=== PATIENT | female | born 1990 | race Caucasian/White ===

== ENCOUNTER → 2021-12-13 09:54 | Outpatient (CLI) | payer OTHER, SELFPAY ==
[2021-12-13 10:01] LABS: Microscopic, Urine URINE MICROSCOPIC (MICROSCOPIC)
--- NOTE | 2021-12-13 10:16 | XR_ITS ---
FINAL REPORT CLINICAL HISTORY: history of bacteremia FINDINGS: Two views of the chest were obtained. The heart size and pulmonary vascularity are within normal limits. The mediastinum is normal. There are multiple bilateral pulmonary nodules, some of which are cavitary most worrisome for septic emboli. There is no pneumothorax. The bony thorax is intact. IMPRESSION: Multiple bilateral pulmonary nodules worrisome for septic emboli. Could be further evaluated with chest CT. Reviewed, Interpreted and Dictated by Beltran White III, MD Transcribed by Joyce Mei Authenticated and . [facility]
[2021-12-13 10:30] LABS: Basophils # 0.1 K/mm3 (0-0.2); Basophils % 0.6 % (0.1-2.0); Eosinophils # 0.2 K/mm3 (0.0-0.4); Eosinophils % 0.9 % (0.1-12.0); Hematocrit 35.3 % (37.0-47.0); Hemoglobin 11.6 g/dL (12.2-16.2); Lymphocytes # 1.3 K/mm3 (0.7-4.5); Lymphocytes % 7.6 % (10-50); Mean Corpuscular HGB Conc 32.8 g/dL (31.8-35.4); Mean Corpuscular Hemoglobin 29.4 pg (27.0-31.2); Mean Corpuscular Volume 89.7 fl (81-99); Mean Platelet Volume 9.9 fl (7.4-10.4); Monocytes # 0.7 K/mm3 (0.1-1.0); Neutrophils # 14.7 K/mm3 (1.8-7.8); Platelet Count 221 K/mm3 (142-424); Red Blood Count 3.93 M/mm3 (4.20-5.40); Red Cell Distribution Width 14.7 % (11.5-17.5); White Blood Count 16.9 K/mm3 (4.8-10.8)
[2021-12-13 10:34] LABS: MANUAL DIFFERENTIAL MANUAL DIFFERENTIAL (MANUAL DIFF)
[2021-12-13 10:37] LABS: Appearance,Urine CLEAR (Clear); Bilirubin,Urine Negative (Negative); Blood, Urine TRACE-I (Negative); Color,Urine YELLOW (Yellow); Glucose,Urine (UA) Negative (Negative); Ketones,Urine Negative (Negative); Leukocyte Esterase,Urine Negative (Negative); Nitrate,Urine Negative (Negative); PH,Urine 7.5 (5.0-8.5); Protein,Urine TRACE (Negative)
[2021-12-13 10:48] LABS: Eosinophils % 1 % (0-3); Lymphocytes % 9 % (10-50); Monocytes % 1 % (2-9); Neutrophils % 89 % (42-76); Total Cells Counted 100
[2021-12-13 10:49] LABS: Platelet Estimate Normal; RBC Morphology Normal
[2021-12-13 10:53] LABS: Bacteria,Urine Trace /lpf; RBC,Urine Occasional #/hpf (0-3); Squamous Epithelial Cell,Urine Occasional #/hpf (0-5); WBC,Urine Occasional #/hpf (0-3)
[2021-12-13 11:15] LABS: Erythrocyte Sedimentation Rate 88 mm/hr (0-20)
[2021-12-13 11:18] LABS: Alanine Aminotransferase 313 U/L (12-78); Albumin Level 2.9 g/dl (3.5-5.0); Albumin/Globulin Ratio 0.9 (1.1-1.8); Alkaline Phosphatase 354 U/L (38-126); Anion Gap 10.9 mEq/L (5-15); Aspartate Amino Transferase 586 U/L (14-36); Bilirubin,Total 0.7 mg/dl (0.2-1.3); Blood Urea Nitrogen 30 mg/dl (7-17); Calcium 8.8 mg/dl (8.4-10.2); Carbon Dioxide 27 mmol/L (22.0-30.0); Chloride 102 mmol/L (98-107); Estimated Glomerular Filt Rate 97 ml/min (>60); GFR (African American) 117 ML/MIN (>60); Globulin 3.4 g/dL (1.3-3.2); Glucose 85 mg/dl (74-100); Potassium 4.9 mmoL/L (3.5-5.1); Sodium 135 mmol/L (136-145); Total Protein,Serum 6.3 g/dl (6.3-8.2)
[2021-12-13 13:15] LABS: Procalcitonin 1.57 ng/mL (0.0-2.0)
[2021-12-14 20:09] LABS: Neisseria gonorrhoeae, NAA Negative (Negative)
== END ==
PROVIDERS: PCP Family Medicine; Visit Provider Family Medicine
DX: Z87.898 Personal history of other specified conditions (principal); R78.81 Bacteremia
CPT/HCPCS: 36415; 71046; 80053; 81001; 84145; 85007; 85025; 85651; 86140; 87491; 87591

== ENCOUNTER 2021-12-13 12:34 | Inpatient (IN) | payer OTHER, SELFPAY ==
--- NOTE | 2021-12-13 12:37 | CT_ITS ---
FINAL REPORT CLINICAL HISTORY: septic emboli, SOA with deep breaths, cough FINDINGS: Thin section axial CT images of the chest were obtained with contrast. 3D reformatted images were also obtained. This study was performed with techniques to keep radiation doses as low as reasonably achievable (ALARA). Individualized dose reduction techniques using automated exposure control or adjustment of mA and/or kV according to the patient's size were employed. There is no evidence of pulmonary embolism. There is no evidence of thoracic aortic aneurysm or dissection. There is no evidence of mediastinal or hilar mass or adenopathy. There are numerous nodules throughout both lungs, many of which are cavitary. One of the larger cavitary nodules measures 18 mm in the lateral right upper lobe. There is a 20 mm cavitary nodule in the posterolateral left lower lobe. Limited images of the upper abdomen demonstrate changes from cholecystectomy. IMPRESSION: No evidence of pulmonary embolism or aortic dissection. Findings most worrisome for multiple septic emboli. Reviewed, Interpreted and Dictated by Beltran White III, MD Transcribed by Armani Medina Authenticated and [facility]
[2021-12-13 12:39] VITALS: BP 105/68; PULSE 106; RESP 16; TEMP 37.2; O2SAT 100; BMI 23.5
--- NOTE | 2021-12-13 12:41 | PC.NURSE ---
GUILHERME FRANCIS at
--- NOTE | 2021-12-13 12:58 | ECG_ITS ---
APPROVED REPORT Exam: Resting ECG HR:104 bpm ECG Measurements Heart Rate 104 AXES MD 130 P 58 QRSd 90 QRS 85 QT 319 T 16 QTc 379 Conclusion SINUS TACHYCARDIA ABNORMAL RHYTHM ECG UNCONFIRMED REPORT Electronically signed by : Serge Cruz MD 12/14/2021 14:40:44
[2021-12-13 13:30] VITALS: BP 98/66; PULSE 109; O2SAT 99
[2021-12-13 13:32] LABS: Lactic Acid 1.1 mmol/L (0.7-2.1)
[2021-12-13 13:33] LABS: Alanine Aminotransferase 308 U/L (12-78); Albumin/Globulin Ratio 0.8 (1.1-1.8); Alkaline Phosphatase 341 U/L (38-126); Aspartate Amino Transferase 534 U/L (14-36); Bilirubin,Total 1.1 mg/dl (0.2-1.3); Blood Urea Nitrogen 29 mg/dl (7-17); Calcium 8.6 mg/dl (8.4-10.2); Carbon Dioxide 27 mmol/L (22.0-30.0); Chloride 99 mmol/L (98-107); Creatinine Clearance Estimated 145 mL/min (50-200); Estimated Glomerular Filt Rate 116 ml/min (>60); GFR (African American) 140 ML/MIN (>60); Globulin 3.9 g/dL (1.3-3.2); Glucose 98 mg/dl (74-100); Sodium 134 mmol/L (136-145); Total Protein,Serum 6.9 g/dl (6.3-8.2)
[2021-12-13 13:38] LABS: C-Reactive Protein 287.1 mg/L (0-4)
[2021-12-13 13:46] LABS: Erythrocyte Sedimentation Rate 105 mm/hr (0-20)
[2021-12-13 13:47] LABS: Troponin I < 0.01 ng/ml (0.00-0.034)
[2021-12-13 14:00] VITALS: BP 110/72; PULSE 106; RESP 18; O2SAT 99
[2021-12-13 14:03] LABS: Basophils # 0.1 K/mm3 (0-0.2); Basophils % 0.6 % (0.1-2.0); Eosinophils # 0.2 K/mm3 (0.0-0.4); Eosinophils % 0.9 % (0.1-12.0); Hematocrit 34.6 % (37.0-47.0); Hemoglobin 11.4 g/dL (12.2-16.2); Lymphocytes # 1.2 K/mm3 (0.7-4.5); Lymphocytes % 6.8 % (10-50); Mean Corpuscular Hemoglobin 29.8 pg (27.0-31.2); Mean Corpuscular Volume 90.3 fl (81-99); Monocytes # 0.6 K/mm3 (0.1-1.0); Monocytes % 3.3 % (1.7-9.3); Neutrophils # 14.9 K/mm3 (1.8-7.8); Neutrophils % 88.3 % (37.0-80.0); Platelet Count 202 K/mm3 (142-424); Red Blood Count 3.83 M/mm3 (4.20-5.40); Red Cell Distribution Width 14.7 % (11.5-17.5); White Blood Count 16.9 K/mm3 (4.8-10.8)
--- NOTE | 2021-12-13 14:10 | INFXCTL.NOTE ---
Paged Dr. Casiano; awaiting a call back
[2021-12-13 14:11] LABS: HCG Qualitative, Serum Negative (Negative)
--- NOTE | 2021-12-13 14:22 | PC.NURSE ---
okayed for pt to eat and drink, meal tray ordered for pt and family
--- NOTE | 2021-12-13 14:23 | PC.NURSE ---
Spoke to Miriam in Care Management regarding patient admission
--- NOTE | 2021-12-13 14:27 | P.CONPHA_ITS ---
- Pharmacy Consult Date: 12/13/21 Time: 14:27 Referring provider: DR. MORE Reason for Consult:: VANCOMYCIN DOSING Allergies and ADEs:: Allergies Allergy/AdvReac Type Severity Reaction Status Date / Time No Known Allergies Allergy Verified 12/13/21 10:47 Home Medications:: Home Medications Medication Instructions Recorded Confirmed Type amoxicillin 500 mg-potassium 1 tab PO DAILY tab 12/13/21 12/13/21 History clavulanate 125 mg tablet linezolid 600 mg tablet 600 mg PO Q12H 21 Days #42 tab 12/13/21 12/13/21 Rx Height: 1.7 m Weight: 68.039 kg Laboratory Results:: Laboratory Results - last 24 hr 12/13/21 12:37: WBC 16.9 H, RBC 3.83 L, Hgb 11.4 L, Hct 34.6 L, MCV 90.3, MCH 29.8, MCHC 33.0, RDW 14.7, Plt Count 202, MPV 11.0 H, Neut % (Auto) 88.3 H, Lymph % (Auto) 6.8 L, [place] % (Auto) 3.3, Eos % (Auto) 0.9, Baso % (Auto) 0.6, Neut # (Auto) 14.9 H, Lymph # (Auto) 1.2, [place] # (Auto) 0.6, Eos # (Auto) 0.2, Baso # (Auto) 0.1 12/13/21 13:10: Sodium 134 L, Potassium 5.0, Chloride 99, Carbon Dioxide 27, Anion Gap 13.0, BUN 29 H, Creatinine 0.60, Estimated Creat Clear 145, Estimated GFR 116, Est GFR ( Amer) 140, Glucose 98, Calcium 8.6, Total Bilirubin 1.1, AST 534 H*, ALT 308 H*, Alkaline Phosphatase 341 H, Troponin I < 0.01, C- Reactive Protein 287.1 H, Total Protein 6.9, Albumin 3.0 L, Globulin 3.9 H, Alb umin/Globulin Ratio 0.8 L 12/13/21 13:10: Lactate 1.1 12/13/21 13:10: ESR 105 H 12/13/21 13:10: Serum HCG, Qual Negative Medical History: Reports:: Anxiety, Asthma, Depression Assessment and Plan - Assessment and plan all Dx Assessment and Plan for all problems:: Pharmacokinetic dosing service Objective: Patient: Floor: Age: 31 yo Serum creatinine: 0.60 mg/dL Height: 66.9 Inches Weight (kg): 68 Assessment: IBW (kg): 61.37 Dosing wt(kg): 68 Estimated Creatinine clearance (ml/min): 130 Clearance limited to 130 ml/min to reduce risk of overdosing. CRCL method: Cockcroft and Gault using ibw(default). Drug selected: Vancomycin Loading dose (mg): Vd (liters): 51.0 (factor used: 0.75 L/kg) Daron (hr-1): 0.112 Half life (hrs): 6.19 CLvanco=?? 5.712 L/hr Recommended dose: 1500 mg Interval: 12 hrs Infusion time (hrs): 2.0 Predicted peak (mcg/mL): 35.6 Predicted trough (mcg/mL): 11.62 Total body weight is being used for vancomycin dosing. Recommendations: Give Vancomycin 1500 mg q 12 hrs with an expected Cpeak of 35.6 mcg/ml and an expected Ctrough of 11.62 mcg/ml AUC 0-24 /SUMMER Data: SUMMER 0.5 mcg/mL:?? AUC/SUMMER:? 1050.4 SUMMER 1.0 mcg/mL:?? AUC/SUMMER:? 525.2 --------- SUMMER 1.5 mcg/mL:?? AUC/SUMMER:? 350.1 SUMMER 2.0 mcg/mL:?? AUC/SUMMER:? 262.6 Thank you for the consult, will continue to follow. -RAMSES CORREA PHARMD
[2021-12-13 14:47] LABS: Coronavirus 19, PCR Not Detected (NotDetected); Influenza A, PCR Not Detected (NotDetected); Influenza B, PCR Not Detected (NotDetected)
--- NOTE | 2021-12-13 15:05 | HMH.EDGENADL ---
ED Disposition Clinical Impression: Septic embolism Disposition: Admitted As Inpatient Condition on Discharge: Critical - Critical Care Critical Care Time: Yes Attestation: On 12/13/21, the high probability of a clinically significant, sudden or life threatening deterioration of the following system(s) required my full and direct attention, intervention and personal management. The time I documented below is in addition to time spent performing reported procedures but includes the following listed in this critical care notation. Total Critical Care Time: 30 Vital system(s) involved:: Shock (Septic) My critical care processes included: Assessment & monitoring of V/S, Initial and Re-exams, Data Review/Interpretation, Coordinating Care, Medication Orders and management Medical Decision Making - Medical Records Medical records reviewed: Yes: I reviewed the patient's medical records. - Justin Inquiry Pt receiving controlled substance: No Vital Signs: 12/13/21 12:39 12/13/21 13:30 12/13/21 14:00 Temperature 98.9 F Temperature Source Oral Pulse Rate 109 H 106 H Pulse Rate [Right Radial] 106 H Respiratory Rate 16 18 Blood Pressure 98/66 L 110/72 Blood Pressure [Right Arm] 105/68 L Blood Pressure Mean 72 79 Blood Pressure Mean [Right Arm] 80 Blood Pressure Source [Right Arm] Automatic Cuff Blood Pressure Position [Right Arm] Sitting 02 Sat by Pulse Oximetry 100 99 99 Oxygen Delivery Method Room Air Room Air 12/13/21 18:00 Temperature Temperature Source Pulse Rate Pulse Rate [Right Radial] Respiratory Rate Blood Pressure Blood Pressure [Right Arm] Blood Pressure Mean Blood Pressure Mean [Right Arm] Blood Pressure Source [Right Arm] Blood Pressure Position [Right Arm] 02 Sat by Pulse Oximetry Oxygen Delivery Method Room Air - Lab Data Lab results reviewed: Yes: I reviewed the patient's lab results. Lab Results 12/13/21 12:37: WBC 16.9 H, RBC 3.83 L, Hgb 11.4 L, Hct 34.6 L, MCV 90.3, MCH 29.8, MCHC 33.0, RDW 14.7, Plt Count 202, MPV 11.0 H, Neut % (Auto) 88.3 H, Lymph % (Auto) 6.8 L, [place] % (Auto) 3.3, Eos % (Auto) 0.9, Baso % (Auto) 0.6, Neut # (Auto) 14.9 H, Lymph # (Auto) 1.2, [place] # (Auto) 0.6, Eos # (Auto) 0.2, Baso # (Auto) 0.1 12/13/21 13:10: Sodium 134 L, Potassium 5.0, Chloride 99, Carbon Dioxide 27, Anion Gap 13.0, BUN 29 H, Creatinine 0.60, Estimated Creat Clear 145, Estimated GFR 116, Est GFR ( Amer) 140, Glucose 98, Calcium 8.6, Total Bilirubin 1.1, AST 534 H*, ALT 308 H*, Alkaline Phosphatase 341 H, Troponin I < 0.01, C-Reactive Protein 287.1 H, Total Protein 6.9, Albumin 3.0 L, Globulin 3.9 H, Albumin/Globulin Ratio 0.8 L 12/13/21 13:10: Lactate 1.1 12/13/21 13:10: ESR 105 H 12/13/21 13:10: Serum HCG, Qual Negative Result diagrams: 12/13/21 18:50 12/13/21 18:50 Orders (Tests/Meds): ED MEDICATIONS Generic Name Dose Route Start Last Admin Trade Name Freq PRN Reason Stop Dose Admin Docusate Sodium 100 mg 12/14/21 09:00 Docusate Sodium 100 Mg Capsule PO 01/13/22 08:59 DAILY CATIA Vancomycin/PEG/NADA/Lysine/Water 1.5 gm in 300 mls @ 150 mls/hr 12/14/21 03:00 Vancomycin 1.5gm/300ml (Peg) Premix IV 12/27/21 14:59 Q12H CATIA Ibuprofen 400 mg 12/13/21 18:00 Ibuprofen 400 Mg Tablet PO 01/12/22 17:59 Q6HP PRN Mild Pain Ibuprofen 600 mg 12/13/21 18:11 Ibuprofen 600 Mg Tablet PO 01/12/22 18:10 Q8HP PRN Fever or Mild Pain Ketorolac Tromethamine 30 mg 12/13/21 18:00 Ketorolac 30mg/Ml Vial IV 12/18/21 17:59 Q6HP PRN Moderate Pain Ketorolac Tromethamine 10 mg 12/13/21 20:00 Ketorolac 10mg Tablet PO 12/18/21 19:59 Q6H [facility] Miscellaneous 1 each 12/13/21 18:00 12/13/21 19:05 Vancomycin Consult Request * 01/12/22 14:29 Not Given CONSULT PHARMACY [facility] Naproxen 250 mg 12/13/21 18:10 Naproxen 500mg Tablet PO 01/12/22 18:09 BIDP PRN Severe Pain Pantoprazole
--- NOTE | 2021-12-13 15:48 | PC.NURSE ---
Lab at BS to draw 2nd troponin
[2021-12-13 16:32] LABS: Troponin I < 0.01 ng/ml (0.00-0.034)
--- NOTE | 2021-12-13 17:09 | PC.NURSE ---
Rounded on pt at this time. PT and visitor sleeping. Pt felt warm to touch when I was adjusting her IV, woke pt up and checked her temp it was 99.0. Pt had no new needs at this time. Resting comfortably
--- NOTE | 2021-12-13 17:46 | PC.NURSE ---
pt ambulatory to restroom without complications
--- NOTE | 2021-12-13 17:57 | PC.NURSE ---
Called report to Karla Mckinney RN
[2021-12-13 18:05] VITALS: BP 95/72; PULSE 102; RESP 14; TEMP 37.2; O2SAT 97
--- NOTE | 2021-12-13 18:11 | PC.NURSE ---
Pt arrived to the floor at this time
[2021-12-13 18:16] VITALS: BP 97/61; PULSE 104; RESP 14; TEMP 37.1; O2SAT 97; BMI 23.7
[2021-12-13 19:26] LABS: Basophils # 0.1 K/mm3 (0-0.2); Basophils % 0.6 % (0.1-2.0); Eosinophils # 0.1 K/mm3 (0.0-0.4); Eosinophils % 0.8 % (0.1-12.0); Hematocrit 32.1 % (37.0-47.0); Hemoglobin 10.5 g/dL (12.2-16.2); Lymphocytes # 1.1 K/mm3 (0.7-4.5); Lymphocytes % 7.7 % (10-50); Mean Corpuscular HGB Conc 32.8 g/dL (31.8-35.4); Mean Corpuscular Hemoglobin 29.5 pg (27.0-31.2); Mean Corpuscular Volume 89.9 fl (81-99); Mean Platelet Volume 9.9 fl (7.4-10.4); Monocytes # 0.5 K/mm3 (0.1-1.0); Monocytes % 3.1 % (1.7-9.3); Neutrophils % 87.8 % (37.0-80.0); Platelet Count 223 K/mm3 (142-424); Red Blood Count 3.56 M/mm3 (4.20-5.40); Red Cell Distribution Width 14.8 % (11.5-17.5); White Blood Count 14.7 K/mm3 (4.8-10.8)
[2021-12-13 19:29] LABS: MANUAL DIFFERENTIAL MANUAL DIFFERENTIAL (MANUAL DIFF)
[2021-12-13 19:34] LABS: Chloride 100 mmol/L (98-107); Potassium 3.9 mmoL/L (3.5-5.1); Sodium 134 mmol/L (136-145)
[2021-12-13 19:37] LABS: Blood Urea Nitrogen 24 mg/dl (7-17); Creatinine Clearance Estimated 110 mL/min (50-200); Estimated Glomerular Filt Rate 83 ml/min (>60); GFR (African American) 101 ML/MIN (>60); Lactic Acid 1.5 mmol/L (0.7-2.1)
[2021-12-13 19:38] LABS: Anion Gap 10.9 mEq/L (5-15); Calcium 8.4 mg/dl (8.4-10.2); Carbon Dioxide 27 mmol/L (22.0-30.0); Glucose 141 mg/dl (74-100)
[2021-12-13 20:00] VITALS: BP 103/52; PULSE 106; RESP 17; TEMP 36.8; O2SAT 96
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
--- NOTE | 2021-12-13 20:52 | HMH.ITSTN ---
RN spoke to , wants to hold off on CT scans until 12/14/21.
[2021-12-13 21:14] LABS: Eosinophils % 2 % (0-3); Lymphocytes % 13 % (10-50); Monocytes % 4 % (2-9); Neutrophils % 81 % (42-76); Nucleated Red Blood Cells 5; Total Cells Counted 100
[2021-12-13 21:15] LABS: Platelet Estimate Normal
[2021-12-14 04:00] VITALS: BP 96/54; PULSE 118; RESP 18; TEMP 37.4; O2SAT 92
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
--- NOTE | 2021-12-14 05:19 | PC.NURSE ---
notified of positive blood cultures.
[2021-12-14 06:00] VITALS: BMI 21.4
[2021-12-14 07:35] LABS: Basophils # 0.1 K/mm3 (0-0.2); Basophils % 0.4 % (0.1-2.0); Eosinophils # 0.1 K/mm3 (0.0-0.4); Eosinophils % 0.7 % (0.1-12.0); Hematocrit 29.9 % (37.0-47.0); Hemoglobin 9.9 g/dL (12.2-16.2); Lymphocytes # 1.5 K/mm3 (0.7-4.5); Lymphocytes % 9.8 % (10-50); Mean Corpuscular HGB Conc 33.2 g/dL (31.8-35.4); Mean Corpuscular Hemoglobin 29.9 pg (27.0-31.2); Mean Platelet Volume 9.7 fl (7.4-10.4); Monocytes # 0.8 K/mm3 (0.1-1.0); Monocytes % 5.1 % (1.7-9.3); Platelet Count 205 K/mm3 (142-424); Red Blood Count 3.32 M/mm3 (4.20-5.40); Red Cell Distribution Width 14.9 % (11.5-17.5); White Blood Count 15.5 K/mm3 (4.8-10.8)
[2021-12-14 07:38] LABS: MANUAL DIFFERENTIAL MANUAL DIFFERENTIAL (MANUAL DIFF)
[2021-12-14 07:47] LABS: Chloride 105 mmol/L (98-107); Potassium 3.5 mmoL/L (3.5-5.1); Sodium 135 mmol/L (136-145)
[2021-12-14 07:50] LABS: Alanine Aminotransferase 173 U/L (12-78); Albumin Level 2.4 g/dl (3.5-5.0); Albumin/Globulin Ratio 0.7 (1.1-1.8); Alkaline Phosphatase 351 U/L (38-126); Anion Gap 10.5 mEq/L (5-15); Aspartate Amino Transferase 127 U/L (14-36); Bilirubin,Total 0.6 mg/dl (0.2-1.3); Blood Urea Nitrogen 20 mg/dl (7-17); Calcium 7.9 mg/dl (8.4-10.2); Carbon Dioxide 23 mmol/L (22.0-30.0); Creatinine Clearance Estimated 99 mL/min (50-200); Estimated Glomerular Filt Rate 83 ml/min (>60); GFR (African American) 101 ML/MIN (>60); Globulin 3.3 g/dL (1.3-3.2); Glucose 146 mg/dl (74-100); Total Protein,Serum 5.7 g/dl (6.3-8.2)
[2021-12-14 08:00] VITALS: BP 97/58; PULSE 88; RESP 16; TEMP 36.7; O2SAT 94
--- NOTE | 2021-12-14 08:00 | CT_ITS ---
FINAL REPORT CLINICAL HISTORY: mrsa bacteremia with neck pain FINDINGS: Computed tomography images were obtained through the cervical spine before and after IV contrast administration. This study was performed with techniques to keep radiation doses as low as reasonably achievable (ALARA). Individualized dose reduction techniques using automated exposure control or adjustment of mA and/or kV according to the patient's size were employed. There is no acute fracture. There is mild kyphosis centered at C4-C5. There is mild degenerative change. There is no significant canal stenosis. There is no abnormal contrast enhancement. IMPRESSION: Degenerative change with no definite acute abnormality, if symptoms persist MRI may be helpful. Reviewed, Interpreted and Dictated by Beltran White III, MD Transcribed by Neelam Rai Authenticated and [facility]
--- NOTE | 2021-12-14 08:00 | CT_ITS ---
FINAL REPORT CLINICAL HISTORY: .back pain, mrsa, FINDINGS: Computed tomography images were obtained through the thoracic spine before and after IV contrast administration. This study was performed with techniques to keep radiation doses as low as reasonably achievable (ALARA). Individualized dose reduction techniques using automated exposure control or adjustment of mA and/or kV according to the patient's size were employed. There is no acute fracture. There are multilevel degenerative changes. There are osteophytes at multiple levels. There is mild vacuum disc phenomenon at multiple levels. There schmorl's nodes at multiple levels. There is no convincing discitis/osteomyelitis. There is no canal stenosis. There is a small left pleural effusion. There are numerous pulmonary nodules, some are cavitary which is consistent with septic emboli. IMPRESSION: Degenerative change with no definite acute abnormality. If symptoms persist, MRI may be helpful. Reviewed, Interpreted and Dictated by Beltran White III, MD Transcribed by Neelam Rai Authenticated and . [facility]
--- NOTE | 2021-12-14 08:00 | CT_ITS ---
FINAL REPORT CLINICAL HISTORY: mrsa bacteremia with back pain FINDINGS: Computed tomography images were obtained through the lumbar spine before and after IV contrast administration. This study was performed with techniques to keep radiation doses as low as reasonably achievable (ALARA). Individualized dose reduction techniques using automated exposure control or adjustment of mA and/or kV according to the patient's size were employed. There is no acute fracture. There is no malalignment. The joint spaces are preserved. There is no abnormal contrast enhancement. There is no definite bony erosion. IMPRESSION: No acute abnormality, no definite bony erosion. If symptoms persist, MRI may be helpful. Reviewed, Interpreted and Dictated by Beltran White III, MD Transcribed by Neelam Rai Authenticated and [facility]
--- NOTE | 2021-12-14 08:51 | CA_ITS ---
APPROVED REPORT EXAM: Comprehensive 2D, Doppler, and color-flow Echocardiogram Drafting Detailer: Mia Foster CRT Ht: 5 ft 7 in Wt: 151lbs BSA: 1.79 BP: 97/61 mmHg Indications: Fever, IVU, MRSA, Hep c, Endocarditis on echo last week at [facility],SOB,CP, smoker 2D Dimensions LVOT 2.04 cm (M/F) 1.5-2.5 LA Volume 22.70 mL LA Volume Index 12.70 mL/m2 (M/F) 16-34 M-Mode Dimensions RVDd 2.79 cm (0.9-2.6) LA Diam 2.61 cm (1.9-4.0) LVDd 4.63 cm (3.5-5.7) Ao Diam 3.50 cm (2.0-3.7) LVDs 3.07 cm (3.5-5.7) IVSd 0.69 cm (0.6-1.1) PWd 0.50 cm (0.6-1.1) EF (Teich) 62.60% FS 33.70% EDV (Teich) 98.80 mL TAPSE 2.59 (<1.7) ESV (Teich) 37.00 mL LV Diastology E Decel Time 160.00 (160-240 msec) E/A Ratio 1.22 MED E' 15.30 (< 7 cm/sec) MED A' 11.10 cm/s E'/MED E' Ratio 5.64 (>14) LAT E' 15.50 (<10 cm/sec) LAT A' 11.80 cm/s E/LAT E' Ratio 5.57 (>14) Aortic Valve AO Peak GR. 8.50 mmHg Mitral Valve MV E Max Fabrizio. 86.00 (40-130 cm/s) MV A Velocity 71.00 (40-130 cm/s) E/A Ratio 1.22 MV Decel. Time 160.00 (160-240 ms) MV PHT 47.00 ms Pulmonary Valve PV Peak Velocity 115.00 (50-150 cm/s) Tricuspid Valve TR P. Velocity 317.00 cm/s RAP Estimate 10.00 mmHg RVSP 50.10 mmHg Left Ventricle Left atrium is mildly enlarged, left ventricle normal size preserved left ventricular systolic function, estimated ejection fraction 55% with no regional wall motion abnormality. Diastolic parameters are inconclusive. Right Ventricle Right atrium and right ventricle moderately enlarged with normal contractility. Aortic Valve Aortic valve is minimally fibrosed there is no aortic stenosis or aortic insufficiency. Mitral Valve Mitral valve leaflets are grossly normal however there is moderate mitral regurgitation seen, mechanism of mitral regurgitation is unclear. Tricuspid Valve Tricuspid valve leaflets are thickened, there appears to be a vegetation involving the tricuspid valve leaflets, there is severe tricuspid regurgitation. Pulmonic Valve Pulmonic valve is poorly visualized. Great Vessels Aortic root is normal size. Inferior vena cava is mildly dilated with normal inspiratory collapse. Pericardium No significant pericardial effusion noted. Conclusion 1. Biatrial enlargement, normal left ventricular size preserved left ventricular systolic function, estimated ejection fraction 55% with no regional wall motion abnormality, diastolic parameters are inconclusive. 2. Moderately enlarged right ventricle with normal contractility. 3. Likely vegetation involving the tricuspid valve with severe tricuspid regurgitation. 4. There is moderate mitral regurgitation seen, the etiology of mitral regurgitation is not clear in the study. 5. No significant pericardial effusion noted. 6. Inferior vena cava is mildly dilated with normal inspiratory collapse. Electronically signed by : Tulio Herbert MD 12/14/2021 19:20:15
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
[2021-12-14 09:51] LABS: Eosinophils % 1 % (0-3); Lymphocytes % 10 % (10-50); Monocytes % 3 % (2-9); Neutrophils % 85 % (42-76); Platelet Estimate Normal; RBC Morphology Normal; Total Cells Counted 100
--- NOTE | 2021-12-14 11:00 | HMH.PHAINT ---
MEDICATION RECONCILIATION COMPLETED ON PATIENT USING EXTERNAL FILL HISTORY FROM PHARMACY. -RAMSES CORREA, ALVERTOD
--- NOTE | 2021-12-14 11:01 | P.CONPHA_ITS ---
[facility] Pharm[facility] VTE Monitoring - Patient Demographics Admission date: 12/13/21 Report Date: 12/14/21 Time: 11:01 Allergies/Adverse Reactions: Patient Allergies No Known Allergies Allergy (Verified 12/13/21 10:47) Height: 1.7 m Weight: 62.142 kg Patient Problems: Current Active Problems Septic embolism (Acute) MRSA bacteremia (Acute) Hepatitis C (Acute) Neck pain (Acute) Back pain (Acute) Exposure to HIV (Chronic) Substance abuse (Chronic) Caries (Chronic) Elevated liver enzymes (Acute) SOB (shortness of breath) (Acute) Chest pain (Acute) Hx of intravenous drug use in remission (Acute) - VTE Risk Labs: VTE Related Lab Results Hgb 9.9 g/dL (12.2-16.2) L 12/14/21 06:40 Hct 29.9 % (37.0-47.0) L 12/14/21 06:40 Plt Count 205 K/mm3 (142-424) 12/14/21 06:40 BUN 20 mg/dl (7-17) H 12/14/21 06:40 Creatinine 0.80 mg/dl (0.52-1.04) 12/14/21 06:40 Estimated Creat Clear 99 mL/min (50-200) 12/14/21 06:40 VTE Score: 6 VTE Risk Level: Moderate Risk - Prophylaxis VTE Prophylaxis Ordered?: Yes Types of VTE Prophylaxis: TEDS Knee High Location of Applied Device: Bilateral Lower Extremeties
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
[2021-12-14 15:22] VITALS: BP 123/73; PULSE 123; RESP 18; TEMP 37.2; O2SAT 95
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
[2021-12-14 17:13] LABS: Microscopic, Urine URINE MICROSCOPIC (MICROSCOPIC)
--- NOTE | 2021-12-14 18:44 | PC.NURSE ---
Pt has slept majority of this shift. Pt has complained of generalized pain x2 this shift and was medicated per MAR. Pt hs been anxious at times but easily redirected. No other acute changes or complaints, will continue to monitor.
[2021-12-14 19:37] LABS: Appearance,Urine CLEAR (Clear); Bilirubin,Urine Negative (Negative); Blood, Urine TRACE-I (Negative); Color,Urine YELLOW (Yellow); Glucose,Urine (UA) Negative (Negative); Ketones,Urine Negative (Negative); Leukocyte Esterase,Urine TRACE (Negative); Nitrate,Urine Negative (Negative); Protein,Urine TRACE (Negative)
[2021-12-14 19:58] LABS: RBC,Urine Occasional #/hpf (0-3); WBC,Urine Occasional #/hpf (0-3)
[2021-12-14 20:00] VITALS: BP 130/72; PULSE 98; RESP 18; TEMP 36.8; O2SAT 100
[2021-12-14 20:14] VITALS: PULSE 100
--- NOTE | 2021-12-14 20:25 | CA_ITS ---
FINAL REPORT CLINICAL HISTORY: calf tenderness FINDINGS: Color Doppler, duplex Doppler and compression sonography of the bilateral lower extremities was performed. There is no evidence of deep venous thrombosis from the level of the groin to the calf. The deep veins are patent and compressible. IMPRESSION: No evidence of deep venous thrombosis bilateral lower extremities. Reviewed, Interpreted and Dictated by Beltran White III, MD Transcribed by Joyce Mei Authenticated and [facility]
[2021-12-14 23:56] VITALS: BP 98/55; PULSE 104; RESP 16; TEMP 36.4; O2SAT 91
[2021-12-15] VITALS: PULSE 100
[2021-12-15 04:00] VITALS: BP 96/55; PULSE 90; PULSE 98; RESP 18; TEMP 36.7; O2SAT 96
[2021-12-15 05:00] VITALS: BMI 22.0
[2021-12-15 07:20] LABS: Chloride 110 mmol/L (98-107); Potassium 3.8 mmoL/L (3.5-5.1); Sodium 139 mmol/L (136-145)
[2021-12-15 07:23] LABS: Anion Gap 7.8 mEq/L (5-15); Blood Urea Nitrogen 13 mg/dl (7-17); Calcium 7.9 mg/dl (8.4-10.2); Carbon Dioxide 25 mmol/L (22.0-30.0); Creatinine Clearance Estimated 116 mL/min (50-200); Estimated Glomerular Filt Rate 97 ml/min (>60); GFR (African American) 117 ML/MIN (>60); Glucose 127 mg/dl (74-100)
[2021-12-15 07:53] LABS: Vancomycin,Peak 32.3 ug/ml (11-39)
[2021-12-15 08:00] VITALS: BP 118/63; PULSE 117; RESP 22; TEMP 37.2; O2SAT 91
[2021-12-15 08:36] LABS: Basophils # 0.1 K/mm3 (0-0.2); Basophils % 0.5 % (0.1-2.0); Eosinophils # 0.2 K/mm3 (0.0-0.4); Hematocrit 29.3 % (37.0-47.0); Hemoglobin 9.5 g/dL (12.2-16.2); Lymphocytes # 1.4 K/mm3 (0.7-4.5); Lymphocytes % 9.3 % (10-50); Mean Corpuscular HGB Conc 32.5 g/dL (31.8-35.4); Mean Corpuscular Hemoglobin 29.9 pg (27.0-31.2); Mean Platelet Volume 10.2 fl (7.4-10.4); Monocytes # 0.6 K/mm3 (0.1-1.0); Monocytes % 4.2 % (1.7-9.3); Neutrophils # 12.3 K/mm3 (1.8-7.8); Platelet Count 224 K/mm3 (142-424); Red Blood Count 3.19 M/mm3 (4.20-5.40); Red Cell Distribution Width 15.1 % (11.5-17.5); White Blood Count 14.5 K/mm3 (4.8-10.8)
[2021-12-15 08:47] LABS: MANUAL DIFFERENTIAL MANUAL DIFFERENTIAL (MANUAL DIFF)
[2021-12-15 09:02] LABS: Lymphocytes % 12 % (10-50); Neutrophils % 88 % (42-76); Total Cells Counted 100
[2021-12-15 09:04] LABS: Target Cells 2+
[2021-12-15 09:05] LABS: Platelet Estimate Normal
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
--- NOTE | 2021-12-15 09:49 | HMH.ACPN2 ---
Internal Medicine - PN: Subj *Date: 12/15/21 *Time: 10:30 Interval history: 31-year-old male patient sitting up in bed with increased respirations complaining of generalized body pain, mother is in room. She does report some shortness of breath due to increased generalized pain, Toradol was stopped yesterday we will restart today and continue with IV antibiotics. Discussed patient's case with [facility] spoke with Dr. Segovia, he has accepted. [facility] is expecting bed availability tonight Exam Vital signs and Labs for Last 24 Hours: Temp Pulse Resp BP Pulse Ox 99.0 F 117 H 22 118/63 91 L 12/15/21 08:00 12/15/21 08:00 12/15/21 08:00 12/15/21 08:00 12/15/21 08:00 Laboratory Results - last 24 hr 12/14/21 06:40: Total Counted 100, Neutrophils % (Manual) 85 H, Band Neutrophils % 1.0, Lymphocytes % (Manual) 10, Monocytes % (Manual) 3, Eosinophils % (Manual) 1, Platelet Estimate Normal, RBC Morphology Normal 12/14/21 17:10: Urine Color Yellow, Urine Appearance Clear, Urine pH 7.0, Ur Specific [place] 1.010, Urine Protein Trace, Urine Glucose (UA) Negative, Urine Ketones Negative, Urine Blood Trace-i, Urine Nitrate Negative, Urine Bilirubin Negative, Urine Urobilinogen 1.0, Ur Leukocyte Esterase Trace, Urine RBC Occasional, Urine WBC Occasional, Ur Squamous Epith Cells None, Urine Bacteria None 12/15/21 02:40: Vancomycin Trough 11.0 H 12/15/21 06:47: Sodium 139, Potassium 3.8, Chloride 110 H, Carbon Dioxide 25, Anion Gap 7.8, BUN 13 D, Creatinine 0.70, Estimated Creat Clear 116, Estimated GFR 97, Est GFR ( Amer) 117, Glucose 127 H, Calcium 7.9 L 12/15/21 06:47: Vancomycin Peak 32.3 12/15/21 06:47: WBC 14.5 H, RBC 3.19 L, Hgb 9.5 L, Hct 29.3 L, MCV 92.0, MCH 29.9, MCHC 32.5, RDW 15.1, Plt Count 224, MPV 10.2, Neut % (Auto) 85.0 H, Lymph % (Auto) 9.3 L, [place] % (Auto) 4.2, Eos % (Auto) 1.0, Baso % (Auto) 0.5, Neut # (Auto) 12.3 H, Lymph # (Auto) 1.4, [place] # (Auto) 0.6, Eos # (Auto) 0.2, Baso # (Auto) 0.1, Total Counted 100, Neutrophils % (Manual) 88 H, Lymphocytes % (Manual) 12, Platelet Estimate Normal, Target Cells 2+ I & O for Last 24 hours: Intake & Output 12/12/21 12/13/21 12/14/21 12/15/21 23:59 23:59 23:59 23:59 Intake Total 720 / 720 1576 / 1576 Balance 720 / 720 1576 / 1576 Weight 151 lb 9 oz 137 lb 140 lb 3.992 oz Microbiology Reports for the Last 24 Hours: Microbiology 12/13/21 10:05 Urine,Clean Catch Urine Culture - Preliminary NO GROWTH AFTER 24 HOURS - Constitutional mild distress, chronically ill appearing - *Routine HEENT Exam Head: Present: normocephalic Eye: Present: EOMI ENT: Present: mucous membranes moist - *Routine Neck Exam Present: trachea midline. Absent: tracheal deviation - *Routine Respiratory Exam Present: CTA bilaterally. Absent: accessory muscle use - *Routine Cardiovascular Exam Present: RRR, murmur - *Routine Abdominal Exam Present: soft, normoactive bowel sounds. Absent: tenderness, firm - *Routine Extremities Exam Present: full ROM, pulses intact. Absent: cyanosis, clubbing, edema - *Routine Skin Exam Present: intact, dry, warm. Absent: cyanosis, erythema - *Routine Neurological Exam Present: alert, oriented X3. Absent: motor deficit - Routine Psychiatric Exam Present: normal affect, normal thought process. Absent: visual hallucinations Assessment and Plan (1) MRSA bacteremia Status: Acute Category: Medical Code(s): R78.81 - Bacteremia; B95.62 - Methicillin resistant Staphylococcus aureus infection as the cause of diseases classified elsewhere (2) Septic embolism Status: Acute Category: Medical Code(s): I76 - Septic arterial embolism (3) Chest pain Status: Acute Qualifiers: Chest pain type: other chest pain Qualified Code(s): R07.89 - Other chest pain Category: Medical Code(s): R07.9 - Chest pain, unspecified (4) Hx of intravenous drug use in remission Status: Acute Cat
--- NOTE | 2021-12-15 10:03 | HMH.PNCARD ---
Subjective Date: 12/15/21 Time: 09:00 Principal diagnosis: infective endocarditis, septic emboli Interval history: This is a 31-year-old female who was admitted to the hospital with multiple septic emboli. The patient had repeat echocardiogram yesterday which did show visitation to her tricuspid valve with severe tricuspid regurgitation as well as moderate mitral regurgitation. The patient is currently getting IV antibiotics. She states that she is still in a significant amount of pain this morning. She is complaining of chest pain and shortness of breath. She states that this is a sharp sensation in the central aspect of her chest. She states that she is short of breath. She states that she is still really fatigued and weak and does not feel well. She states that she feels feverish. She states that she feels nauseated. She denies any vomiting, constipation or diarrhea. She is still denying opioid medications secondary to her history of drug use. The patient will need at least 6 weeks of IV antibiotics. Transfer to [facility] has been initiated and the patient is on a waiting list. However, the patient states that she does not want to be transferred to [facility] and now she would prefer being transferred to [facility] for further treatment of her infective endocarditis. Exam Vital signs and Labs for Last 24 Hours: Temp Pulse Resp BP Pulse Ox 99.0 F 117 H 22 118/63 91 L 12/15/21 08:00 12/15/21 08:00 12/15/21 08:00 12/15/21 08:00 12/15/21 08:00 Laboratory Results - last 24 hr 12/14/21 17:10: Urine Color Yellow, Urine Appearance Clear, Urine pH 7.0, Ur Specific [place] 1.010, Urine Protein Trace, Urine Glucose (UA) Negative, Urine Ketones Negative, Urine Blood Trace-i, Urine Nitrate Negative, Urine Bilirubin Negative, Urine Urobilinogen 1.0, Ur Leukocyte Esterase Trace, Urine RBC Occasional, Urine WBC Occasional, Ur Squamous Epith Cells None, Urine Bacteria None 12/15/21 02:40: Vancomycin Trough 11.0 H 12/15/21 06:47: Sodium 139, Potassium 3.8, Chloride 110 H, Carbon Dioxide 25, Anion Gap 7.8, BUN 13 D, Creatinine 0.70, Estimated Creat Clear 116, Estimated GFR 97, Est GFR ( Amer) 117, Glucose 127 H, Calcium 7.9 L 12/15/21 06:47: Vancomycin Peak 32.3 12/15/21 06:47: WBC 14.5 H, RBC 3.19 L, Hgb 9.5 L, Hct 29.3 L, MCV 92.0, MCH 29.9, MCHC 32.5, RDW 15.1, Plt Count 224, MPV 10.2, Neut % (Auto) 85.0 H, Lymph % (Auto) 9.3 L, [place] % (Auto) 4.2, Eos % (Auto) 1.0, Baso % (Auto) 0.5, Neut # (Auto) 12.3 H, Lymph # (Auto) 1.4, [place] # (Auto) 0.6, Eos # (Auto) 0.2, Baso # (Auto) 0.1, Total Counted 100, Neutrophils % (Manual) 88 H, Lymphocytes % (Manual) 12, Platelet Estimate Normal, Target Cells 2+ I & O for Last 24 hours: Intake & Output 12/12/21 12/13/21 12/14/21 12/15/21 23:59 23:59 23:59 23:59 Intake Total 720 / 720 1576 / 1576 Balance 720 / 720 1576 / 1576 Weight 151 lb 9 oz 137 lb 140 lb 3.992 oz Microbiology Reports for the Last 24 Hours: Microbiology 12/13/21 10:05 Urine,Clean Catch Urine Culture - Preliminary NO GROWTH AFTER 24 HOURS Narrative: Echocardiogram shows: 1. Biatrial enlargement, normal left ventricular size preserved left ventricular systolic function, estimated ejection fraction 55% with no regional wall motion abnormality, diastolic parameters are inconclusive. 2. Moderately enlarged right ventricle with normal contractility. 3. Likely vegetation involving the tricuspid valve with severe tricuspid regurgitation. 4. There is moderate mitral regurgitation seen, the etiology of mitral regurgitation is not clear in the study. 5. No significant pericardial effusion noted. 6. Inferior vena cava is mildly dilated with normal inspiratory collapse. - Constitutional no acute distress, average body habitus, chronically ill appearing, agitated - *Routine HEENT Exam Head: Present: normocephalic, atraumatic Eye: Present: E
[2021-12-15 11:12] VITALS: BMI 22.0
[2021-12-15 11:12] LABS: Rapid Plasma Reagin Ab Titer Non Reactive (NonRea<1:1)
[2021-12-15 11:44] VITALS: BP 114/67; PULSE 105; RESP 20; TEMP 36.7; O2SAT 96
[2021-12-15 14:21] VITALS: PULSE 100
--- NOTE | 2021-12-15 15:45 | PC.NURSE ---
rounded on patient. only complaint noted is of pain. patient currently waiting on transfer. educated on recent labs and plan of care. discussed current pain medication regimen with patient and scheduling of meds. did not have questions over other meds. plan of care discussed with patient. noted to be independent. encouraged to ring out with any new concerns or needs.
--- NOTE | 2021-12-15 15:47 | PC.NURSE ---
Pt is alert and oriented x4. She's complained of generalized pain t/o the shift requiring prn toradol and tylenol administered around the clock. She's ambulated independently to the bathroom with no distress. Appetite has been fair. NSR/ST on telemetry. Pt refused telemetry the first half of the shift but agreed to wear it this afternoon. No other complaints voiced.
[2021-12-15 16:00] VITALS: BP 103/60; PULSE 102; PULSE 110; RESP 22; TEMP 36.2; O2SAT 95
--- NOTE | 2021-12-15 17:10 | PC.NURSE ---
Notified by that pt has a bed available at [facility]. [id number]; Report called to Holly at [phone]. Notified EMS for transport who stated we needed a prior authorization. I spoke with Mirima in care management who said she would take care of it for me but it was not needed for an emergent transfer.
[2021-12-16 09:34] LABS: Neisseria gonorrhoeae, NAA Negative (Negative)
[2021-12-16 15:10] LABS: HIV 1 RNA, Real time PCR <20 copies/mL (.)
[2021-12-28 12:48] LABS: Hep A Ab, IgM Negative; Hepatitis B Core Antibody IgM Negative; Hepatitis B Surface Antigen Negative
[2021-12-28 12:49] LABS: Hepatitis C Antibody >11.0
== END 2021-12-15 18:43 | disposition short-term general hospital (02) | DRG 289 ==
LOC: ER 12:50 → 2ND 18:29
PROVIDERS: Nurse Practitioner Family; Obstetrics & Gynecology; Admitting Provider Family Medicine; Emergency Provider Student in an Organized Health Care Education/Training Program; PCP Family Medicine; Visit Provider Family Medicine
DX: I33.0 Acute and subacute infective endocarditis (principal); I76 Septic arterial embolism; B18.2 Chronic viral hepatitis C; F17.210 Nicotine dependence, cigarettes, uncomplicated; Z20.6 Contact with and (suspected) exposure to human immunodeficiency virus [HIV]; F19.10 Other psychoactive substance abuse, uncomplicated; I08.1 Rheumatic disorders of both mitral and tricuspid valves
CPT/HCPCS: 36415; 71275; 72127; 72130; 72133; 80048; 80053; 80074; 80202; 81001; 83605; 84484; 84703; 85007; 85025; 85651; 86140; 86592; 87040; 87077; 87086; 87186; 87491; 87536; 87591; 93005; 93306; 93970; 99285; C9803; Q9967; U0003; U0005

== ENCOUNTER 2023-01-13 21:13 | Emergency (ER) | payer OTHER, SELFPAY ==
[2023-01-13 21:14] VITALS: BP 106/72; PULSE 102; RESP 16; TEMP 37.6; O2SAT 98; BMI 24.3
[2023-01-13 22:00] VITALS: BP 99/61; PULSE 93; O2SAT 97
[2023-01-13 22:30] VITALS: BP 96/56; PULSE 86; O2SAT 96
--- NOTE | 2023-01-13 22:47 | CT_ITS ---
PROCEDURE INFORMATION: Exam: CT Abdomen And Pelvis With Contrast Exam date and time: 01/14/2023 12:15 AM Age: 32 years old Clinical indication: Abdominal pain; Additional info: Low abdominal, L CVA pain, vesicovaginal fistula TECHNIQUE: Imaging protocol: Computed tomography of the abdomen and pelvis with contrast. Radiation optimization: All CT scans at this facility use at least one of these dose optimization techniques: automated exposure control; mA and/or kV adjustment per patient size (includes targeted exams where dose is matched to clinical indication); or iterative reconstruction. Contrast material: ISOVUE; Contrast volume: 75 ml; Contrast route: IV; REPORTING DATA: Count of CT and Cardiac NM exams in prior 12 months: This patient has received 0 known CTs and 0 known cardiac nuclear medicine studies in the 12 months prior to the current study. COMPARISON: CT LUMBAR SPINE WO/W CON 12/14/2021 10:59 AM FINDINGS: Lungs: Multiple irregular opacities in the bilateral lower lobes, improved compared to the 12/13/2021 exam. Liver: No acute findings. No mass. Gallbladder and bile ducts: The patient is status post cholecystectomy. Pancreas: No acute findings, focal abnormality or ductal dilation. Spleen: Patchy heterogeneous enhancement in the spleen. Adrenal glands: Normal. No mass. Kidneys and ureters: No obstructive uropathy. There are areas of subtle patchy hypoattenuation in the left renal cortex. There is mild left perinephric stranding as well as enhancement of the upper ureteral wall. Stomach and bowel: No obstruction. No mucosal thickening. Appendix: No evidence of appendicitis. Intraperitoneal space: Trace free fluid in the pelvis. Vasculature: No abdominal aortic aneurysm. Lymph nodes: No pathologically enlarged lymph nodes. Urinary bladder: Mild diffuse urinary bladder wall thickening. Reproductive: IUD in the uterus. Bones/joints: Status post sternotomy and postsurgical changes in the heart. Soft tissues: No acute findings. IMPRESSION: 1. Patchy enhancement in the left kidney with mild ureteral wall enhancement and perinephric stranding concerning for upper urinary tract infection including pyelonephritis. Urinary bladder wall thickening concerning for cystitis. 2. Heterogeneous enhancement of the spleen suspected to be related to phase of contrast, however in the setting of left CVA tenderness splenic infarct can be considered. 3. Multifocal irregular opacities in the bilateral lower lobes, improved compared to the prior exam.
--- NOTE | 2023-01-13 22:52 | PC.NURSE ---
rounded on pt nothing needed at this time, call light at bs
[2023-01-13 23:07] LABS: Microscopic, Urine URINE MICROSCOPIC (MICROSCOPIC)
[2023-01-13 23:08] LABS: Appearance,Urine SL CLOUDY (Clear); Bilirubin,Urine Negative (Negative); Blood, Urine 1+ (Negative); Color,Urine YELLOW (Yellow); Glucose,Urine (UA) Negative (Negative); Ketones,Urine Negative (Negative); Leukocyte Esterase,Urine 3+ (Negative); Nitrate,Urine Negative (Negative); PH,Urine 6.5 (5.0-8.5); Protein,Urine Negative (Negative); Urobilinogen,Urine 0.2 EU/dl (0.2)
[2023-01-13 23:20] LABS: Basophils # 0.1 K/mm3 (0-0.2); Basophils % 0.5 % (0.1-2.0); Eosinophils # 0.6 K/mm3 (0.0-0.4); Eosinophils % 4.4 % (0.1-12.0); Hematocrit 52.5 % (37.0-47.0); Hemoglobin 16.6 g/dL (12.2-16.2); Lymphocytes # 1.8 K/mm3 (0.7-4.5); Lymphocytes % 14.4 % (10-50); Mean Corpuscular HGB Conc 31.7 g/dL (31.8-35.4); Mean Corpuscular Hemoglobin 29.1 pg (27.0-31.2); Mean Corpuscular Volume 91.8 fl (81-99); Mean Platelet Volume 8.8 fl (7.4-10.4); Monocytes # 0.7 K/mm3 (0.1-1.0); Monocytes % 5.5 % (1.7-9.3); Neutrophils # 9.5 K/mm3 (1.8-7.8); Neutrophils % 75.2 % (37.0-80.0); Platelet Count 168 K/mm3 (142-424); Red Blood Count 5.71 M/mm3 (4.20-5.40); Red Cell Distribution Width 13.5 % (11.5-17.5); White Blood Count 12.7 K/mm3 (4.8-10.8)
--- NOTE | 2023-01-13 23:20 | HMH.EDGENADL ---
Discharge Plan Disposition Patient Disposition: Home, Self-Care Condition: Good Prescriptions Prescriptions: New cefadroxil 1 gram tablet 1,000 mg PO BID 10 Days Qty: 20 0RF ondansetron 4 mg tablet,disintegrating 4 mg PO Q8H PRN (Reason: nausea and vomiting) 4 Days Qty: 12 0RF phenazopyridine [Pyridium] 200 mg tablet 200 mg PO Q8H PRN (Reason: pain) Qty: 7 0RF No Action levocetirizine [Xyzal] 5 mg tablet 5 mg PO DAILY Qty: 90 3RF clobetasol 0.05 % cream 1 applic topical BID 14 Days Qty: 60 5RF albuterol sulfate 90 mcg/actuation HFA aerosol inhaler 2 puff inhalation QID PRN (Reason: shortness of breath or wheezing) Qty: 8.5 10RF Referrals Follow up/Referrals: Alex Casiano MD [Primary Care Provider] - See instructions Activity Restrictions/Add. Instructions Additional Instructions/Restrictions: You were evaluated in the emergency department today. Follow-up with your primary care provider over the next 3 days. guard supervisor your prescriptions at the pharmacy. Complete the full course of antibiotics as prescribed. You may also take Tylenol and ibuprofen as needed for pain. Return to the emergency department for any new or worsening symptoms. Clinical Impressions Clinical Impression: Acute flank pain, Pyelonephritis Instructions Patient Instructions: DI for Kidney Infection, DI for Urinary Tract Infection (UTI), DI for Urinary Tract Infection in Children Discharge ED Provider: [facility] General Adult HPI <Kameron Mitchell MD - Last Filed: 01/13/23 23:34> General Chief complaint: Urogenital-Female Stated complaint: cant urinate, back pain Time Seen by Provider: 01/13/23 22:30 Mode of Arrival: Ambulatory Source of Information: Patient Limitations: No Limitations Description of Symptoms (Recalled from ER Triage Doc. by RN): Pt ambulatory to ED via POV. C/O anuria x1 day. Oliguria x 3 days. Frequency, and urgency without relief. Pt with >142ml with bladder scan. Hx of urethralvaginal fistula, and self cath for 6 months in 2016. History of Present Illness HPI narrative: Patient is a 32-year-old female with complicated past medical history including IV drug use (last use last summer), rectovaginal fistula, previous obstructive uropathy requiring in and out cathing, hepatitis C, previous infective endocarditis status post surgical intervention and prolonged antibiotic therapy who presents to the emergency department for evaluation of dysuria and lower abdominal pain and inability to void. History is obtained by patient at bedside. Over the last few days patient has been able to void a little bit intermittently however feels a severe urge of incomplete voiding. Denies gait difficulties. There is associated left flank pain. Denies vomiting, chest pain, shortness of breath, current IV drug use, fevers, saddle anesthesia, lower extremity dysfunction, other acute complaints at this time. Related Data Previous Rx's Medication Instructions Recorded levocetirizine 5 mg tablet (Xyzal) 5 mg PO DAILY #90 tabs 08/08/22 albuterol sulfate 90 mcg/actuation 2 puff inhalation QID PRN 12/29/22 aerosol inhaler shortness of breath or wheezing #8.5 grams clobetasol 0.05 % topical cream 1 applic topical BID 2 weeks #60 12/29/22 grams cefadroxil 1 gram tablet 1,000 mg PO BID 10 days #20 tabs 01/14/23 ondansetron 4 mg disintegrating 4 mg PO Q8H PRN nausea and 01/14/23 tablet vomiting 4 days #12 tabs phenazopyridine 200 mg tablet 200 mg PO Q8H PRN pain 6 doses #7 01/14/23 (Pyridium) tabs Allergies Allergy/AdvReac Type Severity Reaction Status Date / Time No Known Allergies Allergy Verified 12/29/22 14:14 [facility] <Kameron Mitchell MD - Last Filed: 01/13/23 23:34> PFS Disclaimer: The information contained in this section may have been updated after the patient was seen, as this information can be updated by other users. Medical History
[2023-01-13 23:21] LABS: Chloride 99 mmol/L (98-107); Sodium 140 mmol/L (136-145)
[2023-01-13 23:22] LABS: Potassium 4.4 mmoL/L (3.5-5.1)
[2023-01-13 23:24] LABS: Alanine Aminotransferase 22 U/L (12-78); Alkaline Phosphatase 100 U/L (38-126); Aspartate Amino Transferase 31 U/L (14-36); Bilirubin,Total 0.9 mg/dl (0.2-1.3); Blood Urea Nitrogen 15 mg/dl (7-17); Creatinine Clearance Estimated 92 mL/min (50-200); Estimated Glomerular Filt Rate 64 ml/min (>60); GFR (African American) 77 ML/MIN (>60)
[2023-01-13 23:25] LABS: Albumin Level 5.1 g/dl (3.5-5.0); Albumin/Globulin Ratio 1.1 (1.1-1.8); Anion Gap 18.4 mEq/L (5-15); Calcium 10.6 mg/dl (8.4-10.2); Carbon Dioxide 27 mmol/L (22.0-30.0); Globulin 4.6 g/dL (1.3-3.2); Glucose 110 mg/dl (74-100); Total Protein,Serum 9.7 g/dl (6.3-8.2)
[2023-01-13 23:38] LABS: Bacteria,Urine 1+ /lpf; Squamous Epithelial Cell,Urine Occasional #/hpf (0-5); WBC,Urine 50-100 #/hpf (0-3)
[2023-01-13 23:52] LABS: HCG Qualitative, Serum Negative (Negative)
[2023-01-14] VITALS: BP 97/67; PULSE 77; O2SAT 99
[2023-01-14 00:30] VITALS: BP 115/73; PULSE 79; O2SAT 98
[2023-01-14 01:00] VITALS: BP 116/80; PULSE 79; O2SAT 98
[2023-01-14 01:30] VITALS: BP 111/70; PULSE 77; O2SAT 98
[2023-01-14 01:50] VITALS: BP 111/70; PULSE 77; RESP 16; TEMP 37.2; O2SAT 98
== END 2023-01-14 01:55 | disposition home or self-care (01) ==
PROVIDERS: Emergency Medicine; Emergency Provider Emergency Medicine; PCP Family Medicine
DX: N12 Tubulo-interstitial nephritis, not specified as acute or chronic (principal); F17.210 Nicotine dependence, cigarettes, uncomplicated
CPT/HCPCS: 74177; 80053; 81001; 84703; 85025; 87086; 87088; 87186; 96361; 96365; 96375; 99285; J0131; J0696; Q9967

== ENCOUNTER → 2023-02-21 23:47 | Outpatient (CLI) | payer OTHER, SELFPAY | PROVIDERS: PCP Family Medicine; Visit Provider Family Medicine | DX: R06.00 Dyspnea, unspecified (principal); B96.29 Other Escherichia coli [E. coli] as the cause of diseases classified elsewhere | CPT/HCPCS: 87086; 87088; 87186 ==

== ENCOUNTER 2023-09-05 11:44 | Outpatient (CLI) | payer OTHER, SELFPAY ==
[2023-09-05 12:27] LABS: Basophils # 0.1 K/mm3 (0-0.2); Basophils % 0.9 % (0.1-2.0); Eosinophils # 0.6 K/mm3 (0.0-0.4); Hemoglobin 14.8 g/dL (12.2-16.2); Lymphocytes # 2.3 K/mm3 (0.7-4.5); Lymphocytes % 24.7 % (10-50); Mean Corpuscular HGB Conc 32.3 g/dL (31.8-35.4); Mean Corpuscular Hemoglobin 31.3 pg (27.0-31.2); Mean Platelet Volume 8.8 fl (7.4-10.4); Monocytes # 0.5 K/mm3 (0.1-1.0); Monocytes % 5.6 % (1.7-9.3); Neutrophils % 62.8 % (37.0-80.0); Platelet Count 192 K/mm3 (142-424); Red Blood Count 4.74 M/mm3 (4.20-5.40); Red Cell Distribution Width 14.5 % (11.5-17.5); White Blood Count 9.5 K/mm3 (4.8-10.8)
[2023-09-05 12:56] LABS: Alanine Aminotransferase 22 U/L (12-78); Albumin Level 4.6 g/dl (3.5-5.0); Albumin/Globulin Ratio 1.8 (1.1-1.8); Alkaline Phosphatase 90 U/L (38-126); Anion Gap 10.4 mEq/L (5-15); Aspartate Amino Transferase 34 U/L (14-36); Bilirubin,Total 0.4 mg/dl (0.2-1.3); Blood Urea Nitrogen 21 mg/dl (7-17); Calcium 9.5 mg/dl (8.4-10.2); Carbon Dioxide 29 mmol/L (22.0-30.0); Chloride 105 mmol/L (98-107); Estimated Glomerular Filt Rate 72 ml/min (>60); GFR (African American) 87 ML/MIN (>60); Globulin 2.6 g/dL (1.3-3.2); Glucose 102 mg/dl (74-100); Potassium 4.4 mmoL/L (3.5-5.1); Sodium 140 mmol/L (136-145); Total Protein,Serum 7.2 g/dl (6.3-8.2)
[2023-09-05 13:21] LABS: HCG,Quantitative < 2 mIU/ml (0-5.42)
== END 2023-09-05 23:59 ==
LOC: LAB 11:44
PROVIDERS: PCP Family Medicine; Visit Provider Obstetrics & Gynecology
DX: T83.32XA Displacement of intrauterine contraceptive device, initial encounter (principal); Z01.812 Encounter for preprocedural laboratory examination
CPT/HCPCS: 36415; 80053; 84702; 85025

== ENCOUNTER 2023-09-07 07:25 | Day surgery (SDC) | payer OTHER, SELFPAY ==
[2023-09-05 10:48] VITALS: BMI 23.5
[2023-09-07] VITALS (9 sets, daily range): BP systolic 123–143; BP diastolic 73–95; PULSE 67–77; RESP 18–20; TEMP 36.2–43; O2SAT 97–100
[2023-09-07] MEDS: LACTATED RINGERS 1000ML 1,000 ML 25 ML IV (08:00)
--- NOTE | 2023-09-07 08:13 | EXP.ANES.CKL ---
[facility] Disclaimer: The information contained in this section may have been updated after the patient was seen, as this information can be updated by other users. Medical History Pacemaker IUD (intrauterine device) in place Vaginal Discharge Sterilization consult Rectovaginal fistula Dyspnea Chest pain Hx of intravenous drug use in remission Tachycardia Surgical History H/O tricuspid valve replacement History of tonsillectomy and adenoidectomy Hx of appendectomy Hx of cholecystectomy History of tonsillectomy and adenoidectomy History of open heart surgery H/O mitral valve replacement Family History Other Asthma Cancer Diabetes FHx: mental illness Heart attack Hypertension Stroke Substance abuse Social History Smoking Status: Current every day smoker tobacco type: cigarettes packs per day: 1 alcohol intake: never substance use type: former substance user, marijuana, heroin and methamphetamine current occupational status: unemployed Travel in the last 8 weeks: None caffeine: Yes [facility] Anesthesia Checklist Patient Identification Patient Identification: Arm Band and Verbal (Name & ) Structural Data Admitted From: Home Planned Operative Procedure/s: IUD removal Consent for Planned Operative Procedure(s) Verified: Yes NPO Status Verified Time NPO: 00:00 Chart Verification Results Verified: HCG Additional verifications Anesthesia Reactions: No Hx Blood Transfusions: Yes Blood Transfusion Reaction: No Airway Assessment Mallampati Score:: Class II C-Spine Mobility Assessed: Yes TMJ Mobility Assessed: Yes Dentition: Edentulous Neurological Assessment Level of Consciousness: Awake Hx Seizures: No Numbness or tingling in extremities: No Anesthesia Plan Anesthesia Risk discussed: Yes Anesthesia Plan: Verified ASA Class: II Anesthesia Type: General
[2023-09-07] MEDS: LIDOCAINE 1% W/EPI 1:100,000 20ML VIAL 20 ML (09:27)
--- NOTE | 2023-09-07 09:43 | P.PNANES_ITS ---
[facility] Anesthesia Record Part I Anesthesia Record I Intake, IV Amount: 200 Hydration: Adequate Estimated blood loss (mL): 2 Urine output (mL): 0 Blood Products used (#): none Blood Pressure: 126/73 SaO2: 97 Pulse Rate: 71 Airway Patency: Patent Respiratory Rate: 18 Temperature: 97.4 F Patient is:: Drowsy and Stable Stable to PACU at:: 09:38
--- NOTE | 2023-09-07 09:45 | P.OP_ITS ---
Date of procedure: 09/07/23 Pre-op Diagnosis:: 1. IUD in place, unable to remove in the office Post-op Diagnosis:: 1. IUD in place, unable to remove in the office Procedure performed:: Hysteroscopy, removal of IUD Surgeon:: Heidi Perdomo DO Manufacturing Clerk(s):: N/a MULTIPLE GAMES DEALER:: Other (HADLEY Cota) Anesthesia: MAC Estimated blood loss (mL): 2 Clinical Note:: Andree is a very pleasant 33 yo [id number] who presents to [facility] for scheduled procedure. She has Mirena IUD in place. It was inserted in 2011. Last period was 08/05/22. She started having monthly periods April 2022. IUD strings not visualized on exam. In July 2022 IUD removal was attempted blindly with alligator forceps without success. CT scan 01/13/23 demonstrated IUD in the uterus. She also complains of persistent vaginal discharge for the past 7 months. Operative findings:: 1. On bimanual exam, uterus normal size and shape, midposition, freely moveable. No adnexal masses palpated 2. On hysteroscopic exam, IUD present in cavity, grossly normal appearing endometrial tissue; no masses or polyps Operative note:: Risks, benefits and alternatives were discussed with the patient. Risks include but are not limited to bleeding, infection, uterine perforation and VTE. Patient voiced understanding and agreed to proceed. She was wheeled back to the operating room and placed under MAC without difficulty. She was placed in dorsal lithotomy position and prepped and draped in the normal sterile fashion. Straight catheter was used to drain the bladder. A bimanual exam was performed. A weighted Auvard was placed in the vaginal vault. Single tooth tenaculum was placed on anterior lip of the cervix. Uterus sounded to 7. Sequential Jacek dilators were used to dilate the cervical os. Hysteroscope with hysteroscopic graspers in place was inserted through the cervix and into uterus. IUD visualized, grasped and removed without difficulty. Instruments were removed from the vagina. Tenaculum site was noted to oozing. Silver nitrate sticks x 2 applied. Hemostasis was noted. Patient was awaken from anesthesia without difficulty. She was transported to recovery room in stable condition. Patient will be discharged home when awake and ambulating. She was given postop instructions as well as instructions to follow-up in the office in 2 weeks. Condition: stable Disposition: same day Specimens:: N/a Complications:: None
[2023-09-07] MEDS: OXYCODONE 5MG IMMEDIATE RELEASE TABLET 10 MG PO (10:05)
--- NOTE | 2023-09-07 10:16 | SUR.PHASEII ---
1015- clinic pharmacy at for pt home meds
--- NOTE | 2023-09-07 10:32 | SUR.PHASEII ---
1030- connor gonzalez at for pt having severe pain. Pt rating this a 04/03. connor Gonzalez gave pt 30mg IV toradol at this time
== END 2023-09-07 10:38 | disposition home or self-care (01) ==
PROVIDERS: PCP Family Medicine; Visit Provider Obstetrics & Gynecology
PROC: (CPT 58579; principal; 2023-09-07 09:00)
DX: T83.32XA Displacement of intrauterine contraceptive device, initial encounter (principal)
CPT/HCPCS: 58579

== ENCOUNTER 2023-12-06 18:00 | Outpatient (CLI) | payer OTHER, SELFPAY | END 2023-12-06 23:59 | disposition home or self-care (01) | LOC: LAB.DROPOF 12-07 14:37 | PROVIDERS: PCP Family Medicine; Visit Provider Family Medicine | DX: R39.9 Unspecified symptoms and signs involving the genitourinary system (principal); N39.0 Urinary tract infection, site not specified; B96.20 Unspecified Escherichia coli [E. coli] as the cause of diseases classified elsewhere | CPT/HCPCS: 87086; 87088; 87186 ==

== ENCOUNTER 2024-02-12 23:35 | Inpatient (IN) | payer MEDICAID, SELFPAY ==
[2024-02-12 23:44] VITALS: BP 118/66; PULSE 111; RESP 18; TEMP 37.7; O2SAT 98; BMI 24.3
--- NOTE | 2024-02-12 23:47 | ECG_ITS ---
APPROVED REPORT Exam: Resting ECG HR:111 bpm ECG Measurements Heart Rate 111 AXES DC 212 P 70 QRSd 89 QRS 83 QT 319 T 88 QTc 384 Conclusion SINUS TACHYCARDIA WITH FIRST DEGREE AV BLOCK POSSIBLE RIGHT ATRIAL ENLARGEMENT [0.25mV P-WAVE] NONSPECIFIC T-WAVE ABNORMALITY ABNORMAL ECG UNCONFIRMED REPORT Electronically signed by : AWA ALCOCER, 02/15/2024 06:50:23
[2024-02-12] MEDS: ACETAMINOPHEN 500MG TAB 1000 MG PO (23:50)
[2024-02-12] MEDS: METHOCARBAMOL 500MG TABLET 1000 MG PO (23:50)
[2024-02-13] VITALS (10 sets, daily range): BP systolic 82–121; BP diastolic 56–90; PULSE 83–111; RESP 14–26; TEMP 36.6–37.4; O2SAT 96–100; BMI 23.6
[2024-02-13] MEDS: CEFTRIAXONE SODIUM 2 GM in 0.9 % SODIUM CHLORIDE 100 ML IV (00:01)
[2024-02-13] MEDS: 0.9 % SODIUM CHLORIDE 1000ML 1,500 ML 999 ML IV (01:17)
--- NOTE | 2024-02-13 01:33 | CT_ITS ---
PROCEDURE INFORMATION: Exam: CTA Chest With Contrast Exam date and time: 02/13/2024 1:33 AM Age: 34 years old Clinical indication: Pain; Chest pressure; Additional info: Chest pain TECHNIQUE: Imaging protocol: Computed tomographic angiography of the chest with contrast. Exam focused on the arteries. 3D rendering (Not supervised by radiologist): MIP and/or 3D reconstructed images were created by the technologist. Radiation optimization: All CT scans at this facility use at least one of these dose optimization techniques: automated exposure control; mA and/or kV adjustment per patient size (includes targeted exams where dose is matched to clinical indication); or iterative reconstruction. Contrast material: ISOVUE; Contrast volume: 70 ml; Contrast route: INTRAVENOUS (IV); COMPARISON: 1. CT CHEST WO CON 02/13/2024 12:[address] ABD/PELVIS WO CON 02/13/2024 1:[address] ABD/PELVIS WO CON 02/13/2024 12:20 AM FINDINGS: Tubes, catheters and devices: There are prosthetic mitral and tricuspid valves. Pulmonary arteries: There is no evidence for clinically relevant pulmonary arterial filling defect. Tiny distal filling defects may be present but are of dubious clinical significance. Aorta: Stable dilation of the ascending thoracic aorta. Lungs: There are extensive areas of airways impaction which are likely inflammatory etiology. There are a few small pulmonary nodules which are likely inflammatory. There is extensive parenchymal scarring throughout the lungs. There are scattered areas of bronchial wall thickening and bronchiectasis which appear improved from CT earlier the same day. Multiple tiny pulmonary nodules such as a noncalcified 4 mm right lower lobe nodule, follow-up as per early recommendations. Pleural spaces: Unremarkable. No pneumothorax. No pleural effusion. Heart: Unremarkable. No cardiomegaly. No pericardial effusion. Lymph nodes: Unremarkable. No enlarged lymph nodes. Bones/joints: Unremarkable. No acute fracture. The patient is status post median sternotomy. Soft tissues: Unremarkable. IMPRESSION: 1. Scattered areas of airways impaction which are likely inflammatory. Small pulmonary nodules are similarly most likely to be inflammatory but follow-up examination in three months can be considered. 2. No evidence for clinically relevant pulmonary arterial filling defect.
--- NOTE | 2024-02-13 01:36 | CT_ITS ---
PROCEDURE INFORMATION: Exam: CT Abdomen And Pelvis With Contrast Exam date and time: 02/13/2024 1:36 AM Age: 34 years old Clinical indication: Abdominal pain; Additional info: Abd pain TECHNIQUE: Imaging protocol: Computed tomography of the abdomen and pelvis with contrast. Radiation optimization: All CT scans at this facility use at least one of these dose optimization techniques: automated exposure control; mA and/or kV adjustment per patient size (includes targeted exams where dose is matched to clinical indication); or iterative reconstruction. Contrast material: ISOVUE; Contrast volume: 75 ml; Contrast route: INTRAVENOUS (IV); COMPARISON: 1. CT ABD/PELVIS WO CON 02/13/2024 1:[address] ABD/PELVIS WO CON 02/13/2024 12:20 AM 3. CTA CHEST PE 02/13/2024 1:33 AM FINDINGS: Limitations: Evaluation of intra-abdominal contents is limited by a paucity of intraperitoneal fat. Liver: Normal. Gallbladder and biliary ducts: The patient is status post cholecystectomy. Pancreas: Normal. Spleen: Normal. Adrenal glands: The adrenal glands appear normal. Kidneys and ureters: Excreted contrast in the urinary collecting systems precludes evaluation for small calculi. Stomach and bowel: There is large volume stool throughout the colon. Appendix: No evidence of appendicitis. Intraperitoneal space: There is a small volume of free fluid in the pelvis. Vasculature: The abdominal aorta and its major branches appear normal without evidence of aneurysm or stenosis. There are pelvic phleboliths. Lymph nodes: No lymphadenopathy. Urinary bladder: There is moderate distention of the urinary bladder. Reproductive: 2 cm right adnexal cyst, possibly dominant follicle. Bones/joints: The visualized osseous structures of the abdomen and pelvis appear normal for patient age. Soft tissues: Unremarkable. Other findings: Please see the dedicated interpretation of the thorax for findings in that region. IMPRESSION: 1. Small volume free fluid in the pelvis and small right adnexal cyst, otherwise unremarkable CT of the abdomen and pelvis. 2. Please see the dedicated interpretation of the thorax for findings in that region.
--- NOTE | 2024-02-13 03:55 | PC.NURSE ---
note per LCrump, pt arrived to unit
[2024-02-13] MEDS: KETOROLAC 30MG/ML VIAL 15 MG IV ×2 (04:07→18:31)
[2024-02-13] MEDS: 0.9 % SODIUM CHLORIDE 1000ML 1,000 ML 125 ML IV ×2 (04:07→14:46)
[2024-02-13 04:55] LABS: Alanine Aminotransferase 110 U/L (12-78); Albumin Level 4.2 g/dl (3.5-5.0); Albumin/Globulin Ratio 1.2 (1.1-1.8); Alkaline Phosphatase 85 U/L (38-126); Anion Gap 10.9 mEq/L (5-15); Aspartate Amino Transferase 114 U/L (14-36); Blood Urea Nitrogen 14 mg/dl (7-17); Calcium 9.1 mg/dl (8.4-10.2); Carbon Dioxide 21 mmol/L (22.0-30.0); Chloride 104 mmol/L (98-107); Estimated Glomerular Filt Rate 63 ml/min (>60); GFR (African American) 76 ML/MIN (>60); Globulin 3.5 g/dL (1.3-3.2); Glucose 122 mg/dl (74-100); Potassium 3.9 mmoL/L (3.5-5.1); Sodium 132 mmol/L (136-145); Total Protein,Serum 7.7 g/dl (6.3-8.2)
[2024-02-13 04:56] LABS: Lactic Acid 1.9 mmol/L (0.7-2.1)
[2024-02-13 04:57] LABS: Troponin I < 0.01 ng/ml (0.00-0.034)
--- NOTE | 2024-02-13 04:57 | P.HP_ITS ---
History of Present Illness *Admission Date: 02/13/24 *Reason for visit:: Fever *History of present illness: This a 34-year-old female with a past medical history of IVUD s/p bovine and mechanical valve, colovaginal fistula with recurrent UTIs who is supposed to be on suppressive macrobid therapy who presents to the ED with complaints of fever and urinary symptoms. She states she has not had her bactrim refilled recently and has been without it for several days. She started to develop a fever yesterday with urinary symptoms. She denies any chest pain or shortness of breath.? Emergency department work up consistent with pyelonephritis. WBC count of 16, urine notable with positive? leuk esterase and WBCS. She does endorse a history of E Coli. She received Rocephin in the ED, sepsis fluids and she will be admitted to the hospitalist service [facility] Disclaimer: The information contained in this section may have been updated after the patient was seen, as this information can be updated by other users. Medical History (Updated 02/13/24 @ 05:38 by Alicia Jones RN) IUD migration Urinary tract infection Pneumonia History of COVID-19 Bronchitis Asthma Anxiety and depression Scoliosis Osteoporosis Allergies History of anemia Pacemaker IUD (intrauterine device) in place Vaginal Discharge Sterilization consult Rectovaginal fistula Dyspnea Chest pain Hx of intravenous drug use in remission Tachycardia Surgical History (Updated 02/13/24 @ 05:38 by Alicia Jones RN) Heart valve replaced H/O tricuspid valve replacement History of tonsillectomy and adenoidectomy Hx of appendectomy Hx of cholecystectomy History of tonsillectomy and adenoidectomy History of open heart surgery H/O mitral valve replacement Family History Other Asthma Cancer Diabetes FHx: mental illness Heart attack Hypertension Stroke Substance abuse Social History (Updated 02/13/24 @ 05:38 by Alicia Jones RN) Smoking Status: Current every day smoker tobacco type: cigarettes packs per day: 1 alcohol intake: never substance use type: former substance user, marijuana, heroin and methamphetamine current occupational status: unemployed Travel in the last 8 weeks: None caffeine: Yes Review of Systems Review of Systems Review of systems (narrative): Negative except HPI Meds Home Medications and Allergies Home Medications ?Medication ?Instructions ?Recorded ?Confirmed ?Type albuterol sulfate 90 mcg/actuation 2 puff inhalation QIDP PRN 02/13/24 02/13/24 History aerosol inhaler Shortness Of Breath New Prescriptions to Start Prescriptions: Allergies Allergy/AdvReac Type Severity Reaction Status Date / Time cauliflower Allergy Verified 02/13/24 05:28 Exam Constitutional Constitutional: no acute distress *Routine HEENT Exam Head: Present normocephalic Eye: Present EOMI and PERRL ENT: Present mucous membranes moist *Routine Neck Exam Neck: Present supple; Absent lymphadenopathy *Routine Respiratory Exam Respiratory: Present CTA bilaterally *Routine Cardiovascular Exam Cardiovascular: Present RRR *Routine Abdominal Exam Abdominal: Present soft and normoactive bowel sounds; Absent tenderness *Routine Rectal Exam Rectal:: deferred *Routine Genitalia Exam Genitalia:: deferred *Routine Extremities Exam Extremities: Absent cyanosis, clubbing or edema *Routine Skin Exam Skin: Present warm; Absent rash *Routine Neurological Exam Neurological: Present alert and oriented X3 Assessment and Plan *Assessment and plan (1) Pyelonephritis: Status: Acute Category: Medical Code(s): N12 - Tubulo-interstitial nephritis, not specified as acute or chronic (2) Sepsis: Status: Acute Qualifiers: Sepsis acute organ dysfunction status: without acute organ dysfunction Sepsis type: sepsis due to unspecified organism Qualified Code(s): A41.9 - Sepsis, unspecified organism Category: Medical Code(s): A41.9 - Sepsis, unspecified organism Plan #Sepsis #Pyelonephritis Meeys criteria for tachycardia and fever Recevied 30ml/kg bolus of fluids for sepsis protocol Rocephin given in ED, will broaden to [place] give prior history. NO EHR available at this time for micro data. Will de escalate abx with new culture report APAP for Fever Toradol PRN for pain Continue MIVF
--- NOTE | 2024-02-13 05:00 | PC.NURSE ---
note per LCrump, pt is alert and oriented X4, and currently tolerating RA well, pt c/o pain 6/10 in lower back and states that she has difficulty urinating, pt was able to urinate 500 mL since admission, upon first assessment, bilateral lungs were wheezing, administered albuterol and lung sounds improved, pt now denies pain and needs, no other acute changes to note this shift
[2024-02-13 05:12] LABS: Color,Urine Yellow (Yellow); Microscopic, Urine URINE MICROSCOPIC (MICROSCOPIC)
[2024-02-13 05:13] LABS: Appearance,Urine Clear (Clear); Bilirubin,Urine Negative (Negative); Blood, Urine Trace (Negative); Glucose,Urine (UA) Negative (Negative); Ketones,Urine Negative (Negative); Leukocyte Esterase,Urine 2+ (Negative); Nitrate,Urine Positive (Negative); PH,Urine 6.5 (5.0-8.5); Protein,Urine 1+ (Negative)
[2024-02-13 05:14] LABS: Bacteria,Urine 4+ /lpf; WBC,Urine 50-100 #/hpf (0-3)
[2024-02-13 05:16] LABS: Urine Pregnancy, HCG Qual. Negative (Negative)
--- NOTE | 2024-02-13 05:16 | ED_ITS ---
Discharge Plan Disposition Patient Disposition: Admitted Chief Complaint: Chest Pain Clinical Impressions Clinical Impression: Sepsis, Pyelonephritis Discharge ED Provider: Faisal Hernandez Adult HPI General Chief complaint: Chest Pain Stated complaint: Pyelo Time Seen by Provider: 02/12/24 23:40 Mode of Arrival: Ambulatory Source of Information: Patient Limitations: No Limitations Description of Symptoms (Recalled from ER Triage Doc. by RN): Patient presents to ED with Chest pain and lower abdomen pain. Patient reports pain has been intermittenly for 1-2 weeks. Patient reports hx of E.Coli 2 weeks ago, and recurrent UTI;s. Patient reports she think's this lower abd pain is another UTI. Patient reports burning when urinating as well. History of Present Illness HPI narrative: 24-year-old female with reported history of endocarditis status post valve repair, colovaginal fistula with recurrent UTIs, presents with multiple complaints.? She reports that she developed pain all over, dysuria, left flank pain starting earlier today.? She reports that she has had tons of urinary tract infections and she is supposed to be on Macrobid as a suppressing agent but stopped taking it recently because she was not given any refills.? She has had the colovaginal fistula repaired in the past but it is still giving her trouble.? She reports that she was previously an IV drug user but denies any IV drug use at this time.? Reports last use was 2 years ago.? Reports fever of 103 at home. Related Data Previous Rx's ?Medication ?Instructions ?Recorded sulfamethoxazole 800 1 tab PO BID #60 tabs 12/06/23 mg-trimethoprim 160 mg tablet (Bactrim DS) albuterol sulfate 90 mcg/actuation See Rx Instructions .Route 01/25/24 aerosol inhaler .COMPLEX #8.5 film Allergies Allergy/AdvReac Type Severity Reaction Status Date / Time No Known Allergies Allergy Verified 12/06/23 16:06 [facility] Disclaimer: The information contained in this section may have been updated after the patient was seen, as this information can be updated by other users. Medical History Urinary tract infection Pneumonia History of COVID-19 Bronchitis Asthma Anxiety and depression Scoliosis Osteoporosis Allergies History of anemia Pacemaker IUD (intrauterine device) in place Vaginal Discharge Sterilization consult Rectovaginal fistula Dyspnea Chest pain Hx of intravenous drug use in remission Tachycardia Surgical History H/O tricuspid valve replacement History of tonsillectomy and adenoidectomy Hx of appendectomy Hx of cholecystectomy History of tonsillectomy and adenoidectomy History of open heart surgery H/O mitral valve replacement Family History Other Asthma Cancer Diabetes FHx: mental illness Heart attack Hypertension Stroke Substance abuse Social History Smoking Status: Current every day smoker tobacco type: cigarettes packs per day: 1 alcohol intake: never substance use type: former substance user, marijuana, heroin and methamphetamine current occupational status: unemployed Travel in the last 8 weeks: None caffeine: Yes ROS Obtained: Yes All systems reviewed & no additional complaints except as documented Physical Exam General General appearance: alert and anxious Head Head exam: atraumatic and normocephalic Eye Eye exam: Present normal appearance, PERRL and EOMI ENT ENT exam: Present normal oropharynx and normal external ear exam Neck Neck exam: Present normal inspection and full ROM Chest Chest inspection: Present normal inspection and symmetric chest wall rise; Absent tenderness Respiratory Respiratory exam: Present normal lung sounds bilaterally; Absent respiratory distress Cardiovascular Cardiovascular exam: Present normal rhythm and tachycardia Abdominal Exam Abdominal exam: Present soft and tenderness (Generalized, worse on the left); Absent distention or guarding Extremities Exam Extremities exam: Present normal inspection; Absent edema or joint swelling Back Exam Back exam: Present normal inspection and CVA tenderness (L) Neurological Exam Neurological exam: Present alert and oriented X3; Absent motor sensory deficit Psychiatric Psychiatric exam: Present agitated and anxious Skin Skin exam: Present warm, dry and normal color Lymphatic Lymphatic Findings: no adenopathy Medical Decision Making Medical Records Medical records reviewed: Yes I reviewed the patient's medical records. Justin Inquiry Pt receiving controlled substance: No Justin was queried for this patient: No Vital Signs: 02/12/24 23:44 02/13/24 01:12 02/13/24 04:59 Temperature 99.8 F H 98.3 F Temperature Source Oral Oral Pulse Rate 95 H 111 H Pulse Rate [Right Brachial] 111 H Respiratory Rate 18 16 Blood Pressure 96/61 L Blood Pressure [Right Arm] 118/66 Blood Pressure Mean [Right Arm] 83 Blood Pressure Source Automatic Cuff Blood Pressure Source [Right Arm] Automatic Cuff Blood Pressure Position Supine Blood Pressure Position [Right Arm] Supine 02 Sat by Pulse Oximetry 98 98 Oxygen Delivery Method Room Air Room Air Lab Data Lab results reviewed: Yes I reviewed the patient's lab results. Lab Results 02/12/24 23:50: Sodium 132 L, Potassium 3.9, Chloride 104, Carbon Dioxide 21 L, Anion Gap 10.9, BUN 14, Creatinine 1.00, Estimated GFR 63, Est GFR ( Amer) 76, Glucose 122 H, Lactate 1.9, Calcium 9.1, Total Bilirubin 1.0, AST 114 H, ALT 110 H, Alkaline Phosphatase 85, Troponin I < 0.01, Total Protein 7.7, Albumin 4.2, Globulin 3.5 H, Albumin/Globulin Ratio 1.2, Urine Color Yellow, Urine Appearance Clear, Urine pH 6.5, Ur Specific [place] 1.010, Urine Protein 1+, Urine Glucose (UA) Negative, Urine Ketones Negative, Urine Blood Trace, U rine Nitrate Positive A, Urine Bilirubin Negative, Urine Urobilinogen 1.0, Ur Leukocyte Esterase 2+ A, Urine RBC 3-5, Urine WBC 50-100, Ur Squamous Epith Cells 5-10, Urine Bacteria 4+, Urine HCG, Qual Negative 02/12/24 23:50 Medical Decision Narrative: 24-year-old female with history of endocarditis, colovaginal fistula with recurrent UTIs presents for pain all over including chest abdomen back as well as dysuria, tachycardia, reported fever at home.? Differential diagnosis includes but limited to bacteremia, pyelonephritis, septic stone, endocarditis, PE, septic pulmonary emboli,.? Workup ordered including CBC CMP blood cultures x [address] chest PE, CT abdomen pelvis with IV contrast.? Patient given 2.5 L for full sepsis bolus.? Patient given 2 g of IV ceftriaxone empirically for presumed UTI/pyelonephritis. Perfusion reassessment performed by me after administration of 1 L fluid at 1:17 AM, tachycardia improved, patient requires additional fluid resuscitation however. EKG interpreted by me on 01/31/2024 at 2347: Sinus tachycardia with first-degree AV block, ventricular rate of 111, no evident ST changes, T wave inversion in 2 3 aVF. Labs independently turned to me and significant for findings consistent with urinary tract infection with urine 80-100 WBCs, white blood cell count 16. CT imaging independently interpreted by me and shows no evidence of septic pulmonary emboli and no obstructing ureteral stones.? No obvious pelvic abscess. Patient's blood pressure and heart rate improved after antibiotics and fluid administration.? Patient's presentation is most consistent with acute pyelonephritis.? Given her history complicated by bovine mitral and tricuspid valve, I think she would benefit for admission for continued IV antibiotic therapy until she clears her blood cultures.? She would also likely benefit from a formal cardiac ultrasound.? Interactive discussion was had with the hospitalist on-call for admission. Procedures Risk/Benefits of Procedure(s) Were Explained: Yes Critical Care Critical Care Time Critical Care Time: No
[2024-02-13 05:48] LABS: Hematocrit 46.3 % (37.0-47.0); Mean Corpuscular Hemoglobin 30.6 pg (27.0-31.2); Mean Corpuscular Volume 94.3 fl (81-99); Red Blood Count 4.91 M/mm3 (4.20-5.40); White Blood Count 16.7 K/mm3 (4.8-10.8)
[2024-02-13 05:49] LABS: Basophils # 0.1 K/mm3 (0-0.2); Basophils % 0.6 % (0.1-2.0); Eosinophils # 0.2 K/mm3 (0.0-0.4); Eosinophils % 1.1 % (0.1-12.0); Lymphocytes # 0.3 K/mm3 (0.7-4.5); Mean Corpuscular HGB Conc 32.5 g/dL (31.8-35.4); Mean Platelet Volume 8.8 fl (7.4-10.4); Monocytes # 0.6 K/mm3 (0.1-1.0); Monocytes % 3.5 % (1.7-9.3); Neutrophils # 15.4 K/mm3 (1.8-7.8); Neutrophils % 92.3 % (37.0-80.0); Platelet Count 133 K/mm3 (142-424); Red Cell Distribution Width 13.9 % (11.5-17.5)
[2024-02-13 05:51] LABS: Lymphocytes % 2 % (10-50); Monocytes % 2 % (2-9); Neutrophils % 96 % (42-76); Platelet Estimate Normal; RBC Morphology Normal; Total Cells Counted 100
--- NOTE | 2024-02-13 06:22 | PC.NURSE ---
MAR ORDERS: Acetaminophen- 1,000mg PO 02/12/24 2353 Methocarbamol- 1,000mg PO 02/12/24 2353 1L NS- 02/12/24 2353
[2024-02-13 07:44] LABS: MANUAL DIFFERENTIAL MANUAL DIFFERENTIAL (MANUAL DIFF)
[2024-02-13] MEDS: IOPAMIDOL-370 (76%);100ML BOTTLE 70 ML IV (08:02)
[2024-02-13] MEDS: SODIUM CHLORIDE 0.9% 10ML SYR (RAD ONLY) 10 ML IV (08:02)
[2024-02-13] MEDS: 0.9 % SODIUM CHLORIDE 50 ML VIAL IV (08:02)
[2024-02-13] MEDS: MEROPENEM 1 GM in 0.9 % SODIUM CHLORIDE 100 ML IV ×3 (08:40→23:22)
[2024-02-13 09:45] LABS: Basophils # 0.1 K/mm3 (0-0.2); Mean Corpuscular Volume 96.3 fl (81-99); Red Cell Distribution Width 13.8 % (11.5-17.5)
[2024-02-13] MEDS: ALBUTEROL-HFA 90MCG/PUFF INHALER 8GM 2 PUFF IH (09:58)
[2024-02-13] MEDS: MORPHINE 4MG/ML SYRINGE 4 MG IV ×2 (10:01→14:41)
[2024-02-13 10:03] LABS: Chloride 109 mmol/L (98-107); Sodium 136 mmol/L (136-145)
[2024-02-13 10:06] LABS: Blood Urea Nitrogen 14 mg/dl (7-17); Creatinine Clearance Estimated 97 mL/min (50-200); Estimated Glomerular Filt Rate 71 ml/min (>60); GFR (African American) 86 ML/MIN (>60)
[2024-02-13 10:07] LABS: Basophils % 0.4 % (0.1-2.0); Calcium 7.5 mg/dl (8.4-10.2); Carbon Dioxide 22 mmol/L (22.0-30.0); Eosinophils % 0.3 % (0.1-12.0); Glucose 135 mg/dl (74-100); Hematocrit 42.7 % (37.0-47.0); Lymphocytes # 0.4 K/mm3 (0.7-4.5); Lymphocytes % 3.3 % (10-50); Mean Corpuscular HGB Conc 31.4 g/dL (31.8-35.4); Mean Corpuscular Hemoglobin 30.3 pg (27.0-31.2); Mean Platelet Volume 9.2 fl (7.4-10.4); Monocytes # 0.3 K/mm3 (0.1-1.0); Monocytes % 2.2 % (1.7-9.3); Neutrophils # 12.2 K/mm3 (1.8-7.8); Neutrophils % 93.7 % (37.0-80.0); Platelet Count 102 K/mm3 (142-424); Red Blood Count 4.43 M/mm3 (4.20-5.40)
[2024-02-13 10:11] LABS: Hemoglobin 13.4 g/dL (12.2-16.2)
[2024-02-13 11:53] LABS: MANUAL DIFFERENTIAL MANUAL DIFFERENTIAL (MANUAL DIFF)
[2024-02-13 12:59] LABS: Lymphocytes % 5 % (10-50); Monocytes % 5 % (2-9); Neutrophils % 90 % (42-76); Total Cells Counted 100
[2024-02-13 13:00] LABS: RBC Morphology Normal
[2024-02-13 13:02] LABS: Platelet Estimate Slight Decrease
[2024-02-13] MEDS: ACETAMINOPHEN 325MG TAB 650 MG PO (14:43)
--- NOTE | 2024-02-13 15:33 | EXP.EVENT.NO ---
Patient reevaluated this a.m. after being admitted earlier in the morning. 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 Patient very honest about this when talking to Dr. Mendoza. Suffering from left CVA tenderness to palpation. Currently being treated for pyelonephritis. Continue IV antibiotics and as needed pain meds. Hopefully patient will improve within next 48 hours and be appropriate for hospital disposition.
--- NOTE | 2024-02-13 18:40 | PC.NURSE ---
Pt has done well this shift. She states that most of her pain today has been a headache that just, keeps coming back . VSS. No other complaints this shift. ambulating as tolerated.
[2024-02-14] VITALS: BP 88/68; PULSE 84; RESP 16; TEMP 37.1; O2SAT 99
[2024-02-14] MEDS: KETOROLAC 30MG/ML VIAL 15 MG IV (00:19)
[2024-02-14 04:00] VITALS: BP 91/61; PULSE 84; RESP 16; TEMP 37; O2SAT 94; BMI 25.7
[2024-02-14] MEDS: MORPHINE 4MG/ML SYRINGE 4 MG IV (05:25)
--- NOTE | 2024-02-14 06:00 | PC.NURSE ---
Pt has been A/O and able to ambulate in room. She continues to report headache throughout the night. Pt was able to sleep some through the shift. Early this am, pt began sobbing and reporting uncontrolled severe headache. Pt was medicated with Morphine per AUG. Pt reports pain relieved and was found to be resting comfortably.
[2024-02-14 08:00] VITALS: BP 112/65; PULSE 100; RESP 17; TEMP 39.1; O2SAT 100
[2024-02-14] MEDS: MORPHINE 2MG/ML SYRINGE 2 MG IV (08:18)
[2024-02-14] MEDS: MEROPENEM 1 GM in 0.9 % SODIUM CHLORIDE 100 ML IV ×2 (08:37→16:19)
[2024-02-14] MEDS: ACETAMINOPHEN 325MG TAB 650 MG PO ×2 (08:37→17:41)
[2024-02-14] MEDS: SUMAtriptan SUCCINATE 25MG TABLET 50 MG PO (08:37)
--- NOTE | 2024-02-14 09:05 | CA_ITS ---
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 139.0 (50-130 cm/s) AO Peak GR. 7.80 mmHg AO Mean GR. 3.80 (<5 mmHg) AO VTI 20.4 (18-25 cm) HELENA (VTI) 2.09 (2.5-4.5 cm2) Mitral Valve MV A Velocity 98.0 (40-130 cm/s) E/A Ratio 1.57 MV Mean Gr. 4.90 (<2mmHg) Pulmonary Valve PV Peak Velocity 64.0 (50-150 cm/s) Tricuspid Valve TR P. Velocity 266.00 cm/s RAP Estimate 10.00 mmHg RVSP 38.30 mmHg Left Ventricle The left ventricle is normal size. The left ventricular systolic function is normal. The left ventricular ejection fraction is within the normal range. There is increased LV wall thickness. There is normal LV segmental wall motion. Diastolic function is indeterminate. LVEF is 55%. Right Ventricle Right ventricle is mildly dilated. Right ventricle is mildly hypokinetic. Atria Left atrium is mildly dilated. Right atrium is mildly dilated. There is no Doppler evidence of interatrial shunt. Aortic Valve The aortic valve is mildly thickened. There is no aortic valvular stenosis. Trace aortic regurgitation. Mitral Valve s/p MVR. The prosthesis is well-seated. No evidence of mitral valve stenosis. Mean MV gradient 4 mmhg. Peak E velocity 150 cm/s. Mild to moderate central mitral regurgitation. No paravalvular regurgitation. Tricuspid Valve s/p TVR. The prosthesis is well-seated. Mild to moderate central tricuspid regurgitation. No paravalvular regurgitation. Pulmonic Valve The pulmonary valve is normal in structure. Mild pulmonic regurgitation. Great Vessels The aortic root is not well visualized. IVC is normal in size and collapses >50% with inspiration. Pericardium There is no pericardial effusion. Other Information Study Quality: Technically Difficult Conclusion Technically difficult study due to shadowing in the setting of MVR and TVR. Normal LV systolic function. Mild RV dilation with mild reduction in RV function. Mild biatrial dilation. s/p MVR. Mild to moderate central MR. s/p TVR. Mild to moderate central TR. No obvious evidence of masses or vegetations on this TTE. Note that TTE is not conclusive to rule out endocarditis, especially in the setting of MVR and TVR. If clinical concern for endocarditis, EMILE is recommended if clinically feasible. Electronically signed by : Angelika West MD 02/14/2024 17:04:56
--- NOTE | 2024-02-14 09:10 | P.CONPHA_ITS ---
Pharmacy Consult Date: 02/14/24 Time: 09:10 Referring provider: DR. LOTT Reason for Consult:: VANCOMYCIN DOSING Allergies Allergy/AdvReac Type Severity Reaction Status Date / Time cauliflower Allergy Verified 02/13/24 05:28 Home Medications ?Medication ?Instructions ?Recorded ?Confirmed ?Type albuterol sulfate 90 mcg/actuation 2 puff inhalation QIDP PRN 02/13/24 02/13/24 History aerosol inhaler Shortness Of Breath New Prescriptions to Start Prescriptions: Height: 1.73 m Weight: 76.839 kg Laboratory Results:: Laboratory Results - last 24 hr 02/13/24 09:29: WBC 13.0 H, RBC 4.43, Hgb 13.4 D, Hct 42.7, MCV 96.3, MCH 30.3, MCHC 31.4 L, RDW 13.8, Plt Count 102 L, MPV 9.2, Neut % (Auto) 93.7 H, Lymph % (Auto) 3.3 L, [place] % (Auto) 2.2, Eos % (Auto) 0.3, Baso % (Auto) 0.4, Neut # (Auto) 12.2 H, Lymph # (Auto) 0.4 L, [place] # (Auto) 0.3, Eos # (Auto) 0.0, Baso # (Auto) 0.1, Total Counted 100, Neutrophils % (Manual) 90 H, Lymphocytes % (Manual) 5 L, Monocytes % (Manual) 5, Platelet Estimate Slight decrease, RBC Morphology Normal, Sodium 136, Potassium 4.0, Chloride 109 H, Carbon Dioxide 22, Anion Gap 9.0, BUN 14, Creatinine 0.90, Estimated Creat Clear 97, Estimated GFR 71, Est GFR ( Amer) 86, Glucose 135 H, Calcium 7.5 L Medical History: Medical History (Updated 02/13/24 @ 05:38 by Alicia Jones RN) IUD migration Urinary tract infection Pneumonia History of COVID-19 Bronchitis Asthma Anxiety and depression Scoliosis Osteoporosis Allergies History of anemia Pacemaker IUD (intrauterine device) in place Vaginal Discharge Sterilization consult Rectovaginal fistula Dyspnea Chest pain Hx of intravenous drug use in remission Tachycardia Assessment and Plan Assessment and plan all Dx Assessment and Plan for all problems:: Pharmacokinetic dosing service Objective: Patient: Floor: Age: 34 yo Serum creatinine: 0.90 mg/dL Height: 68.1 Inches Weight (kg): 76.8 Assessment: IBW (kg): 64.13 Dosing wt(kg): 76.8 Estimated Creatinine clearance (ml/min): 88.3 CRCL method: Cockcroft and Gault using ibw(default). Drug selected: Vancomycin Loading dose (mg): Vd (liters): 61.4 (factor used: 0.8 L/kg) Daron (hr-1): 0.078 Half life (hrs): 8.89 CLvanco=?? 4.789 L/hr Recommended dose: 1250 mg Interval: 12 hrs Infusion time (hrs): 2.0 Predicted peak (mcg/mL): 31.0 Predicted trough (mcg/mL): 14.21 Total body weight is being used for vancomycin dosing. Recommendations: Give Vancomycin 1250 mg q 12 hrs with an expected Cpeak of 31.0 mcg/ml and an expected Ctrough of 14.21 mcg/ml AUC 0-24 /SUMMER Data: SUMMER 0.5 mcg/mL:?? AUC/SUMMER:? 1044.1 SUMMER 1.0 mcg/mL:?? AUC/SUMMER:? 522.0 --------- SUMMER 1.5 mcg/mL:?? AUC/SUMMER:? 348.0 SUMMER 2.0 mcg/mL:?? AUC/SUMMER:? 261.0 Thank you for the consult, will continue to follow. -ALVERTO BAIGD
--- NOTE | 2024-02-14 09:10 | EXP.ACUTE.PN ---
Subjective *Date: 02/14/24 *Time: 09:14 Interval history: Informed this a.m. that patient's admission blood cultures positive for Staph aureus. Patient also febrile with fevers at 102 ?F in past 24 hours. Complaining of headache this a.m. and given as needed Imitrex. 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 Medical Exam Vital signs and Labs for Last 24 Hours: Vital Signs Temp Pulse Resp BP Pulse Ox O2 Del Method 02/14/24 08:00 102.4 F H 100 H 17 112/65 100 Room Air 02/14/24 06:53 Room Air 02/14/24 05:00 Room Air 02/14/24 04:00 98.6 F 84 16 91/61 L 94 L Room Air 02/14/24 03:00 Room Air 02/14/24 01:00 Room Air 02/14/24 00:00 98.8 F 84 16 88/68 L 99 Room Air 02/13/24 23:00 Room Air 02/13/24 21:00 Room Air 02/13/24 20:00 98 Room Air 02/13/24 20:00 98.1 F 83 16 82/62 L 98 Room Air 02/13/24 17:00 Room Air 02/13/24 16:00 98.7 F 100 H 19 94/56 L 96 Room Air 02/13/24 15:00 Room Air 02/13/24 14:44 99.1 F 02/13/24 13:00 Room Air 02/13/24 11:55 99 F 84 14 88/61 L 100 Room Air 02/13/24 11:00 Room Air Intake and Output 02/13/24 02/14/24 02/14/24 23:59 07:59 15:59 Intake Total 1738 / 2778 500 / 500 Balance 1738 / 2278 500 / 500 Intake: Intake, Oral Amount 340 / 880 Intake, Total IV Amount 1398 / 1898 500 / 500 0.9 % Sodium Chloride 1000ML 1, 1398 / 1898 500 / 500 000 ml @ 125 mls/hr IV .Q8H [facility] Rx#:[id number] Other: Number of Unmeasured Voids 1 Weight 76.839 kg Patient Weight 02/14/24 23:59 Weight 76.839 kg Laboratory Results - last 24 hr 02/13/24 09:29: WBC 13.0 H, RBC 4.43, Hgb 13.4 D, Hct 42.7, MCV 96.3, MCH 30.3, MCHC 31.4 L, RDW 13.8, Plt Count 102 L, MPV 9.2, Neut % (Auto) 93.7 H, Lymph % (Auto) 3.3 L, [place] % (Auto) 2.2, Eos % (Auto) 0.3, Baso % (Auto) 0.4, Neut # (Auto) 12.2 H, Lymph # (Auto) 0.4 L, [place] # (Auto) 0.3, Eos # (Auto) 0.0, Baso # (Auto) 0.1, Total Counted 100, Neutrophils % (Manual) 90 H, Lymphocytes % (Manual) 5 L, Monocytes % (Manual) 5, Platelet Estimate Slight decrease, RBC Morphology Normal, Sodium 136, Potassium 4.0, Chloride 109 H, Carbon Dioxide 22, Anion Gap 9.0, BUN 14, Creatinine 0.90, Estimated Creat Clear 97, Estimated GFR 71, Est GFR ( Amer) 86, Glucose 135 H, Calcium 7.5 L I & O for Labs for Last 24 Hours: Intake & Output 02/11/24 02/12/24 02/13/24 02/14/24 23:59 23:59 23:59 23:59 Intake Total 2278 / 2778 500 / 500 Output Total 500 / 500 Balance 1778 / 2278 500 / 500 Weight 72.575 kg 70.67 kg 76.839 kg Microbiology Reports for the Last 24 Hours: Microbiology 02/12/24 23:50 Urine,Catheterized Urine Culture - Final Escherichia coli 02/12/24 23:50 Blood Blood Culture - Preliminary 02/12/24 23:50 Blood Blood Culture - Preliminary Head: Present normocephalic ENT: Present normal exam and normal oropharynx Neck: Present normal inspection and full ROM Respiratory: Present CTA bilaterally Cardiac: Present Tachycardia GI: Present soft, tenderness (Left CVA tenderness to palpation noted during physical exam) and normal bowel sounds Rectal (female): Present deferred (female): Present deferred Extremities: Present normal inspection and full ROM Assessment and Plan *Assessment and plan (1) Pyelonephritis: Status: Acute Category: Medical Code(s): N12 - Tubulo-interstitial nephritis, not specified as acute or chronic (2) Sepsis: Status: Acute Category: Medical Code(s): A41.9 - Sepsis, unspecified organism (3) Acute flank pain: Status: Acute Category: Medical Code(s): R10.9 - Unspecified abdominal pain (4) Pyelonephritis: Status: Acute Category: Medical Code(s): N12 - Tubulo-interstitial nephritis, not specified as acute or chronic (5) Rectovaginal fistula: Status: Acute Category: Medical Code(s): N82.3 - Fistula of vagina to large intestine Plan # Gram-positive bacteremia ? 02/13 patient's admission blood cultures positive for Staph aureus. Given patient's remote history of IV drug use mechanical heart valves extremely concerned for possible endocarditis. Will add IV vancomycin, and continue meropenem. Repeat blood cultures. Transthoracic echocardiogram ordered for today. Consulted cardiology to determine if transesophageal echocardiogram needed. Continue maintenance IV fluids to replace insensible losses due to febrile illness. Follow inflammatory markers. # Rectovaginal fistula possibly infected: ?02/13 patient has rectovaginal fistula which might be worsening infection status. Will consult general surgery to determine if fistula requires repair. Will also perform CT abdomen/pelvis with p.o. and IV contrast looking for abscess in region of rectovaginal fistula. #Sepsis secondary to pyelonephritis ?02/13 admission urine culture positive for E. coli. Patient on meropenem. Once sensitivities available we will downgrade patient to appropriate antibiotics as needed. Meeys criteria for tachycardia and fever Recevied 30ml/kg bolus of fluids for sepsis protocol Rocephin given in ED, will broaden to Merrem give prior history. NO EHR available at this time for micro data. Will de escalate abx with new culture report APAP for Fever Toradol PRN for pain Continue MIVF Disposition: ?Given patient's Gram positive blood culture results, patient will need to remain in house until endocarditis workup completed. Patient will likely require an additional 48 hours of hospitalization time before disposition plans can be made. Patient may need to be discharged with IV PICC, or to care facility for IV antibiotic administration for bacteremia amelioration.
[2024-02-14] MEDS: VANCOMYCIN/WATER FOR INJ (PEG) 1.25 GM/250 ML PIGGYBACK IV (10:28)
[2024-02-14 10:48] LABS: Basophils % 0.3 % (0.1-2.0); Eosinophils # 0.2 K/mm3 (0.0-0.4); Hematocrit 37.8 % (37.0-47.0); Hemoglobin 12.2 g/dL (12.2-16.2); Lymphocytes # 0.5 K/mm3 (0.7-4.5); Lymphocytes % 7.4 % (10-50); Mean Corpuscular HGB Conc 32.1 g/dL (31.8-35.4); Mean Corpuscular Hemoglobin 30.9 pg (27.0-31.2); Mean Corpuscular Volume 96.1 fl (81-99); Mean Platelet Volume 9.2 fl (7.4-10.4); Monocytes # 0.2 K/mm3 (0.1-1.0); Monocytes % 3.3 % (1.7-9.3); Neutrophils # 6.4 K/mm3 (1.8-7.8); Neutrophils % 86.9 % (37.0-80.0); Platelet Count 92 K/mm3 (142-424); Red Blood Count 3.94 M/mm3 (4.20-5.40); Red Cell Distribution Width 14.1 % (11.5-17.5); White Blood Count 7.3 K/mm3 (4.8-10.8)
[2024-02-14 10:49] LABS: MANUAL DIFFERENTIAL MANUAL DIFFERENTIAL (MANUAL DIFF)
[2024-02-14 10:51] LABS: Alanine Aminotransferase 174 U/L (12-78); Alkaline Phosphatase 112 U/L (38-126); Aspartate Amino Transferase 168 U/L (14-36); Bilirubin,Total 0.5 mg/dl (0.2-1.3); Blood Urea Nitrogen 16 mg/dl (7-17); Carbon Dioxide 21 mmol/L (22.0-30.0); Chloride 110 mmol/L (98-107); Creatinine Clearance Estimated 136 mL/min (50-200); Estimated Glomerular Filt Rate 95 ml/min (>60); GFR (African American) 115 ML/MIN (>60); Globulin 2.9 g/dL (1.3-3.2); Glucose 119 mg/dl (74-100); Magnesium 1.7 mg/dl (1.6-2.3); Sodium 134 mmol/L (136-145); Total Protein,Serum 5.9 g/dl (6.3-8.2)
[2024-02-14 10:57] LABS: C-Reactive Protein 234.2 mg/L (0-4)
[2024-02-14 11:08] LABS: Procalcitonin 1.45 ng/mL (0.0-2.0)
[2024-02-14 11:31] LABS: Lymphocytes % 10 % (10-50); Neutrophils % 90 % (42-76); Platelet Estimate Slight Decrease; RBC Morphology Normal; Total Cells Counted 100
[2024-02-14 12:00] VITALS: BP 116/62; PULSE 57; RESP 16; TEMP 36.6; O2SAT 95
--- NOTE | 2024-02-14 12:55 | EXP.CARD.CON ---
History of Present Illness History of Present Illness Consult date: 02/14/24 Requesting physician: Gerson Mendoza Consult reason: chest pain Chief complaint: fever, flank pain, chest pain History of present illness: This is a 34-year-old white female presented to the emergency department with complaints of fever, flank pain and chest pain. 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 The patient states for approximately 1 week she has been having fevers and bodyaches. She states that her body just hurts all over and then she started having severe bilateral flank pain. She is also complaining of sharp chest pain with palpitations. She states that this did get severe and is what prompted her to come to the emergency department. She has been short of breath especially with exertion. It does improve with rest. She denies any lower extremity edema. She has had some chills with a fever as well. She denies any nausea, vomiting, diarrhea, PND or orthopnea. She was also having painful urination. The patient reports that she has a colovaginal fistula and knew she had a UTI and that was also why she came to the emergency department. Upon arrival to the emergency department the patient had elevated white blood count and a positive urine. She is currently being treated for pyelonephritis. She also has positive blood cultures. The patient is getting IV antibiotics. The patient has a history of IV drug use with infective endocarditis in the past. She reports that she had her mitral valve and tricuspid valves replaced approximately 2 years ago because of the infective endocarditis. The day after having her valve replacement she had a permanent pacemaker placed because her heart rate was too low. She states 2 months after the pacemaker implant it got infected and had to be removed. Then she reports 2 months after that she had open heart surgery to have the leads from her pacemaker removed due to the infection. She follows with cardiology at [facility]. [facility] Disclaimer: The information contained in this section may have been updated after the patient was seen, as this information can be updated by other users. Medical History (Updated 02/14/24 @ 13:11 by Neela Brown APRN) Infective endocarditis History of endocarditis IUD migration Urinary tract infection Pneumonia History of COVID-19 Bronchitis Asthma Anxiety and depression Scoliosis Osteoporosis Allergies History of anemia Pacemaker IUD (intrauterine device) in place Vaginal Discharge Sterilization consult Rectovaginal fistula Dyspnea Chest pain Hx of intravenous drug use in remission Tachycardia Surgical History (Updated 02/14/24 @ 13:08 by Neela Brown APRN) Heart valve replaced H/O tricuspid valve replacement History of tonsillectomy and adenoidectomy Hx of appendectomy Hx of cholecystectomy History of tonsillectomy and adenoidectomy History of open heart surgery H/O mitral valve replacement Family History Other Asthma Cancer Diabetes FHx: mental illness Heart attack Hypertension Stroke Substance abuse Social History Smoking Status: Current every day smoker tobacco type: cigarettes packs per day: 1 alcohol intake: never substance use type: former substance user, marijuana, heroin and methamphetamine current occupational status: unemployed Travel in the last 8 weeks: None caffeine: Yes Review of Systems Review of Systems Review of systems:: pertinent systems reviewed and negative unless documented below Constitutional Constitutional: Reports system reviewed and no additional complaints, except as documented, Reports body ache(s), Reports chills, Reports fatigue, Reports lethargy and Reports weakness Eyes Eyes: Reports system reviewed and no additional complaints, except as documented ENT Ears, Nose, Mouth, and Throat: Reports system reviewed and no additional complaints, except as documented *Cardiovascular Cardiovascular: Reports system reviewed and no additional complaints, except as documented, Reports chest pain, Reports chest pain at rest, Reports chest pain with activity, Reports dyspnea, Reports dyspnea on exertion, Reports irregular heart rhythm, Denies leg edema, Reports palpitations and Reports rapid heart rate *Respiratory Respiratory: Reports system reviewed and no additional complaints, except as documented, Reports dyspnea and Reports dyspnea on exertion *Gastrointestinal Gastrointestinal: Reports system reviewed and no additional complaints, except as documented *Genitourinary Genitourinary: Reports system reviewed and no additional complaints, except as documented, Reports difficulty voiding and Reports dysuria *Musculoskeletal Musculoskeletal: Reports system reviewed and no additional complaints, except as documented, Reports back pain (bilateral flank pain ) and Reports myalgias Integumentary/Breasts Skin/Breast: Reports system reviewed and no additional complaints, except as documented *Neurologic Neurologic: Reports system reviewed and no additional complaints, except as documented and Reports weakness Psychiatric Psychiatric: Reports system reviewed and no additional complaints, except as documented Endocrine Endocrine: Reports system reviewed and no additional complaints, except as documented, Reports fatigue and Reports palpitations Hematologic/Lymphatic Hematologic/Lymphatic: Reports system reviewed and no additional complaints, except as documented Allergic/Immunologic Allergic/Immunologic: Reports system reviewed and no additional complaints, except as documented Exam Data for Last 24 hours Vital signs and Labs for Last 24 Hours: Temp Pulse Resp BP Pulse Ox O2 Del Method 102.4 F H 100 H 17 112/65 100 Room Air 02/14/24 08:00 02/14/24 08:00 02/14/24 08:00 02/14/24 08:00 02/14/24 08:00 02/14/24 09:00 Laboratory Results - last 24 hr 02/13/24 09:29: Total Counted 100, Neutrophils % (Manual) 90 H, Lymphocytes % (Manual) 5 L, Monocytes % (Manual) 5, Platelet Estimate Slight decrease, RBC Morphology Normal 02/14/24 10:03: WBC 7.3 D, RBC 3.94 L, Hgb 12.2, Hct 37.8, MCV 96.1, MCH 30.9, MCHC 32.1, RDW 14.1, Plt Count 92 L, MPV 9.2, Neut % (Auto) 86.9 H, Lymph % (Auto) 7.4 L, [place] % (Auto) 3.3, Eos % (Auto) 2.0, Baso % (Auto) 0.3, Neut # (Auto) 6.4, Lymph # (Auto) 0.5 L, [place] # (Auto) 0.2, Eos # (Auto) 0.2, Baso # (Auto) 0.0, Total Counted 100, Neutrophils % (Manual) 90 H, Lymphocytes % (Manual) 10, Platelet Estimate Slight decrease, RBC Morphology Normal, Sodium 134 L, Potassium 4.0, Chloride 110 H, Carbon Dioxide 21 L, Anion Gap 7.0, BUN 16, Creatinine 0.70 D, Estimated Creat Clear 136, Estimated GFR 95, Est GFR ( Amer) 115 D, Glucose 119 H, Calcium 8.0 L, Magnesium 1.7, Total Bilirubin 0.5, AST 168 H D, ALT 174 H D, Alkaline Phosphatase 112, C-Reactive Protein 234.2 H, Total Protein 5.9 L, Albumin 3.0 L D, Globulin 2.9, Albumin/Globulin Ratio 1.0 L, Procalcitonin 1.45 I & O for Last 24 hours: Intake & Output 02/11/24 02/12/24 02/13/24 02/14/24 23:59 23:59 23:59 23:59 Intake Total 2278 / 2778 500 / 500 Output Total 500 / 500 250 / 250 Balance 1778 / 2278 250 / 250 Weight 160 lb 155 lb 12.8 oz 169 lb 6.4 oz Microbiology Reports for the Last 24 Hours: Microbiology 02/12/24 23:50 Urine,Catheterized Urine Culture - Final Escherichia coli 02/12/24 23:50 Blood Blood Culture - Preliminary 02/12/24 23:50 Blood Blood Culture - Preliminary Narrative: EKG is sinus tachycardia with a rate of 109 bpm and nonspecific T wave abnormalities. Constitutional Constitutional: no acute distress and average body habitus *Routine HEENT Exam Head: Present normocephalic and atraumatic ENT: Present mucous membranes moist *Routine Neck Exam Neck: Present supple, full ROM and normal carotid upstroke; Absent JVD, carotid bruit or lymphadenopathy *Routine Respiratory Exam Respiratory: Present CTA bilaterally, normal respiratory effort, able to speak in complete sentences and symmetric chest movement *Routine Cardiovascular Exam Cardiovascular: Present RRR, Normal S1, Normal S2, murmur and click; Absent gallop *Routine Abdominal Exam Abdominal: Present soft and normoactive bowel sounds; Absent tenderness, distended or organomegaly *Routine Extremities Exam Extremities: Present full ROM, pulses intact and normal capillary refill; Absent cyanosis, clubbing or edema *Routine Skin Exam Skin: Present intact and warm; Absent erythema *Routine Neurological Exam Neurological: Present alert, oriented X3 and CN II-XII intact; Absent sensory deficit or motor deficit Routine Psychiatric Exam Psychiatric: Present normal affect Meds Home Medications and Allergies Home Medications ?Medication ?Instructions ?Recorded ?Confirmed ?Type albuterol sulfate 90 mcg/actuation 2 puff inhalation QIDP PRN 02/13/24 02/13/24 History aerosol inhaler Shortness Of Breath New Prescriptions to Start Prescriptions: Allergies Allergy/AdvReac Type Severity Reaction Status Date / Time cauliflower Allergy Verified 02/13/24 05:28 Assessment and Plan *Assessment and plan (1) Pyelonephritis: Status: Acute Category: Medical Code(s): N12 - Tubulo-interstitial nephritis, not specified as acute or chronic (2) Sepsis: Status: Acute Qualifiers: Sepsis type: sepsis due to unspecified organism Sepsis acute organ dysfunction status: unspecified Qualified Code(s): A41.9 - Sepsis, unspecified organism Category: Medical Code(s): A41.9 - Sepsis, unspecified organism (3) UTI (urinary tract infection), bacterial: Status: Acute Category: Medical Code(s): N39.0 - Urinary tract infection, site not specified; A49.9 - Bacterial infection, unspecified (4) Acute flank pain: Status: Acute Category: Medical Code(s): R10.9 - Unspecified abdominal pain (5) History of open heart surgery: Status: Acute Category: Surgical Code(s): Z98.890 - Other specified postprocedural states (6) H/O mitral valve replacement: Status: Acute Category: Surgical Code(s): Z95.2 - Presence of prosthetic heart valve (7) Hx of intravenous drug use in remission: Status: Acute Category: Social Hx Code(s): Z87.898 - Personal history of other specified conditions (8) Tachycardia: Status: Acute Category: Medical Code(s): R00.0 - Tachycardia, unspecified (9) H/O tricuspid valve replacement: Status: Acute Category: Surgical Code(s): Z95.2 - Presence of prosthetic heart valve (10) History of endocarditis: Status: Acute Category: Medical Code(s): Z86.79 - Personal history of other diseases of the circulatory system (11) Elevated liver enzymes: Status: Acute Category: Medical Code(s): R74.8 - Abnormal levels of other serum enzymes Plan Plan: 1. The patient was admitted to the hospital with pyelonephritis and sepsis. She does have positive blood cultures. She is getting IV antibiotics. Will defer this to the hospitalist. 2. The patient has a history of infective endocarditis status post mitral and tricuspid valve replacements. Will obtain an echocardiogram to evaluate her LV function and rule out infective endocarditis because she does have positive blood cultures. 3. Despite what her echocardiogram shows she will likely need to undergo EMILE. The patient will need to be transferred to a facility with cardiology who can complete a EMILE as this service is unavailable at our facility today. 4. The patient does have a history of IV drug use. She states her last use was 2 years ago. 5. She also has a history of colovaginal fistula. As mentioned before she does have a UTI and pyelonephritis for which she is currently getting IV antibiotics. 6. The patient does have elevated liver enzymes most likely from sepsis. 7. Her blood pressure is well-controlled. 8. Her LDL goal is less than 100. 9. Try to obtain her cardiology records from [facility] in [facility]. 10. Further recommendations will be made pending the patient's response to treatment and the results of her echocardiogram today. Thank you for the opportunity to help participate in the care of this patient. All recommendations and orders are per Dr. Gregorio.
[2024-02-14 16:00] VITALS: BP 103/68; PULSE 86; RESP 16; TEMP 37.1; O2SAT 90
--- NOTE | 2024-02-14 16:35 | P.DS_ITS ---
General Admission date:: 02/13/24 Discharge date: 02/14/24 HPI HPI HPI: This a 34-year-old female with a past medical history of IVUD s/p bovine and mechanical valve, colovaginal fistula with recurrent UTIs who is supposed to be on suppressive macrobid therapy who presents to the ED with complaints of fever and urinary symptoms. She states she has not had her bactrim refilled recently and has been without it for several days. She started to develop a fever yesterday with urinary symptoms. She denies any chest pain or shortness of breath.? Emergency department work up consistent with pyelonephritis. WBC count of 16, urine notable with positive? leuk esterase and WBCS. She does endorse a history of E Coli. 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 Patient presented with malaise, abdominal pain, and diagnosed with pyelonephritis. Patient's urine culture positive for pansensitive E. coli. Patient initially started on IV meropenem, then downgraded to IV Rocephin 02/14/2024 once sensitivities available. Patient unfortunately developed fevers 100 to degrees Fahrenheit 02/13 in a.m., with 02/12 blood cultures positive for Staph aureus. Cardiology was consulted and echocardiogram was ordered. Cardiology recommended given patient's history of artificial heart valves patient be transferred to [facility] with [facility] capabilities. Patient only agreed to transfer to [facility] they saved my life and I am not going anywhere else. Dr. Mendoza called [facility] at [phone] option #1. Patient accepted by hospitalist Kaia Hammer once bed available. Patient maintained on IV vancomycin/Rocephin until transfer to crisis since then he hospital completed. Exam Data for Last 24 hours Vital signs and Labs for Last 24 Hours: Temp Pulse Resp BP Pulse Ox O2 Del Method 98 F 57 L 16 116/62 95 Room Air 02/14/24 12:00 02/14/24 12:00 02/14/24 12:00 02/14/24 12:00 02/14/24 12:00 02/14/24 15:00 Laboratory Results - last 24 hr 02/14/24 10:03: WBC 7.3 D, RBC 3.94 L, Hgb 12.2, Hct 37.8, MCV 96.1, MCH 30.9, MCHC 32.1, RDW 14.1, Plt Count 92 L, MPV 9.2, Neut % (Auto) 86.9 H, Lymph % (Auto) 7.4 L, Garvin % (Auto) 3.3, Eos % (Auto) 2.0, Baso % (Auto) 0.3, Neut # (Auto) 6.4, Lymph # (Auto) 0.5 L, Garvin # (Auto) 0.2, Eos # (Auto) 0.2, Baso # (Auto) 0.0, Total Counted 100, Neutrophils % (Manual) 90 H, Lymphocytes % (Manual) 10, Platelet Estimate Slight decrease, RBC Morphology Normal, Sodium 134 L, Potassium 4.0, Chloride 110 H, Carbon Dioxide 21 L, Anion Gap 7.0, BUN 16, Creatinine 0.70 D, Estimated Creat Clear 136, Estimated GFR 95, Est GFR ( Amer) 115 D, Glucose 119 H, Calcium 8.0 L, Magnesium 1.7, Total Bilirubin 0.5, AST 168 H D, ALT 174 H D, Alkaline Phosphatase 112, C-Reactive Protein 234.2 H, Total Protein 5.9 L, Albumin 3.0 L D, Globulin 2.9, Albumin/Globulin Ratio 1.0 L, Procalcitonin 1.45 I & O for Last 24 hours: Intake & Output 02/11/24 02/12/24 02/13/24 02/14/24 23:59 23:59 23:59 23:59 Intake Total 2278 / 2778 500 / 500 Output Total 500 / 500 250 / 250 Balance 1778 / 2278 250 / 250 Weight 72.575 kg 70.67 kg 76.839 kg Microbiology Reports for the Last 24 Hours: Microbiology 02/12/24 23:50 Urine,Catheterized Urine Culture - Final Escherichia coli 02/12/24 23:50 Blood Blood Culture - Preliminary 02/12/24 23:50 Blood Blood Culture - Preliminary 02/11 blood cultures positive for Staph aureus with sensitivities pending. *Routine HEENT Exam Head: Present normocephalic Eye: Present EOMI and normal accommodation ENT: Present mucous membranes moist and mucous membranes dry *Routine Neck Exam Neck: Present supple and full ROM *Routine Respiratory Exam Respiratory: Present CTA bilaterally *Routine Cardiovascular Exam Cardiovascular: Present RRR, Normal S1 and Normal S2 *Routine Abdominal Exam Abdominal: Present soft, normoactive bowel sounds and tenderness (Left CVA tenderness to palpation less pronounced versus yesterday examination) *Routine Extremities Exam Extremities: Present full ROM and normal capillary refill *Routine Neurological Exam Neurological: Present alert and oriented X3 Results Data Completed and Pending Labs on day of discharge: Labs from last 24 hours 02/14/24 10:03 WBC 7.3 D RBC 3.94 L Hgb 12.2 Hct 37.8 MCV 96.1 MCH 30.9 MCHC 32.1 RDW 14.1 Plt Count 92 L MPV 9.2 Neut % (Auto) 86.9 H Lymph % (Auto) 7.4 L Garvin % (Auto) 3.3 Eos % (Auto) 2.0 Baso % (Auto) 0.3 Neut # (Auto) 6.4 Lymph # (Auto) 0.5 L Garvin # (Auto) 0.2 Eos # (Auto) 0.2 Baso # (Auto) 0.0 Total Counted 100 Neutrophils % (Manual) 90 H Lymphocytes % (Manual) 10 Platelet Estimate Slight decrease RBC Morphology Normal Sodium 134 L Potassium 4.0 Chloride 110 H Carbon Dioxide 21 L Anion Gap 7.0 BUN 16 Creatinine 0.70 D Estimated Creat Clear 136 Estimated GFR 95 Est GFR ( Amer) 115 D Glucose 119 H Calcium 8.0 L Magnesium 1.7 Total Bilirubin 0.5 AST 168 H D ALT 174 H D Alkaline Phosphatase 112 C-Reactive Protein 234.2 H Total Protein 5.9 L Albumin 3.0 L D Globulin 2.9 Albumin/Globulin Ratio 1.0 L Procalcitonin 1.45 Preliminary micro results at discharge 02/12/24 23:50 Blood Culture - Preliminary Blood 02/12/24 23:50 Blood Culture - Preliminary Blood Impressions Impressions: Ordering Physician: Faisal Hernandez MD Date of Service: 02/13/24 Procedure(s): CT abdomen pelvis w con Accession Number(s): [id number] cc: Faisal Hernandez MD; Anish Jeter MD; Alex Casiano MD~ PROCEDURE INFORMATION: Exam: CT Abdomen And Pelvis With Contrast Exam date and time: 02/13/2024 1:36 AM Age: 34 years old Clinical indication: Abdominal pain; Additional info: Abd pain TECHNIQUE: Imaging protocol: Computed tomography of the abdomen and pelvis with contrast. Radiation optimization: All CT scans at this facility use at least one of these dose optimization techniques: automated exposure control; mA and/or kV adjustment per patient size (includes targeted exams where dose is matched to clinical indication); or iterative reconstruction. Contrast material: ISOVUE; Contrast volume: 75 ml; Contrast route: INTRAVENOUS (IV); COMPARISON: 1. CT ABD/PELVIS WO CON 02/13/2024 1:[address] ABD/PELVIS WO CON 02/13/2024 12:20 AM 3. CTA CHEST PE 02/13/2024 1:33 AM FINDINGS: Limitations: Evaluation of intra-abdominal contents is limited by a paucity of intraperitoneal fat. Liver: Normal. Gallbladder and biliary ducts: The patient is status post cholecystectomy. Pancreas: Normal. Spleen: Normal. Adrenal glands: The adrenal glands appear normal. Kidneys and ureters: Excreted contrast in the urinary collecting systems precludes evaluation for small calculi. Stomach and bowel: There is large volume stool throughout the colon. Appendix: No evidence of appendicitis. Intraperitoneal space: There is a small volume of free fluid in the pelvis. Vasculature: The abdominal aorta and its major branches appear normal without evidence of aneurysm or stenosis. There are pelvic phleboliths. Lymph nodes: No lymphadenopathy. Urinary bladder: There is moderate distention of the urinary bladder. Reproductive: 2 cm right adnexal cyst, possibly dominant follicle. Bones/joints: The visualized osseous structures of the abdomen and pelvis appear normal for patient age. Soft tissues: Unremarkable. Other findings: Please see the dedicated interpretation of the thorax for findings in that region. IMPRESSION: 1. Small volume free fluid in the pelvis and small right adnexal cyst, otherwise unremarkable CT of the abdomen and pelvis. 2. Please see the dedicated interpretation of the thorax for findings in that region. Exam: CTA Chest With Contrast Exam date and time: 02/13/2024 1:33 AM Age: 34 years old Clinical indication: Pain; Chest pressure; Additional info: Chest pain TECHNIQUE: Imaging protocol: Computed tomographic angiography of the chest with contrast. Exam focused on the arteries. 3D rendering (Not supervised by radiologist): MIP and/or 3D reconstructed images were created by the technologist. Radiation optimization: All CT scans at this facility use at least one of these dose optimization techniques: automated exposure control; mA and/or kV adjustment per patient size (includes targeted exams where dose is matched to clinical indication); or iterative reconstruction. Contrast material: ISOVUE; Contrast volume: 70 ml; Contrast route: INTRAVENOUS (IV); COMPARISON: 1. CT CHEST WO CON 02/13/2024 12:[address] ABD/PELVIS WO CON 02/13/2024 1:[address] ABD/PELVIS WO CON 02/13/2024 12:20 AM FINDINGS: Tubes, catheters and devices: There are prosthetic mitral and tricuspid valves. Pulmonary arteries: There is no evidence for clinically relevant pulmonary arterial filling defect. Tiny distal filling defects may be present but are of dubious clinical significance. Aorta: Stable dilation of the ascending thoracic aorta. Lungs: There are extensive areas of airways impaction which are likely inflammatory etiology. There are a few small pulmonary nodules which are likely inflammatory. There is extensive parenchymal scarring throughout the lungs. There are scattered areas of bronchial wall thickening and bronchiectasis which appear improved from CT earlier the same day. Multiple tiny pulmonary nodules such as a noncalcified 4 mm right lower lobe nodule, follow-up as per early recommendations. Pleural spaces: Unremarkable. No pneumothorax. No pleural effusion. Heart: Unremarkable. No cardiomegaly. No pericardial effusion. Lymph nodes: Unremarkable. No enlarged lymph nodes. Bones/joints: Unremarkable. No acute fracture. The patient is status post median sternotomy. Soft tissues: Unremarkable. IMPRESSION: 1. Scattered areas of airways impaction which are likely inflammatory. Small pulmonary nodules are similarly most likely to be inflammatory but follow-up examination in three months can be considered. 2. No evidence for clinically relevant pulmonary arterial filling defect. DS: Diagnosis Discharge Diagnosis (1) Pyelonephritis: Status: Acute Code(s): N12 - Tubulo-interstitial nephritis, not specified as acute or chronic (2) Sepsis: Status: Acute Code(s): A41.9 - Sepsis, unspecified organism Qualifiers: Sepsis acute organ dysfunction status: unspecified Sepsis type: sepsis due to unspecified organism Qualified Code(s): A41.9 - Sepsis, unspecified organism (3) UTI (urinary tract infection), bacterial: Status: Acute Code(s): N39.0 - Urinary tract infection, site not specified; A49.9 - Bacterial infection, unspecified (4) Acute flank pain: Status: Acute Code(s): R10.9 - Unspecified abdominal pain (5) History of open heart surgery: Status: Acute Code(s): Z98.890 - Other specified postprocedural states (6) H/O mitral valve replacement: Status: Acute Code(s): Z95.2 - Presence of prosthetic heart valve (7) Hx of intravenous drug use in remission: Status: Acute Code(s): Z87.898 - Personal history of other specified conditions (8) Tachycardia: Status: Acute Code(s): R00.0 - Tachycardia, unspecified (9) H/O tricuspid valve replacement: Status: Acute Code(s): Z95.2 - Presence of prosthetic heart valve (10) History of endocarditis: Status: Acute Code(s): Z86.79 - Personal history of other diseases of the circulatory system (11) Elevated liver enzymes: Status: Acute Code(s): R74.8 - Abnormal levels of other serum enzymes Meds Home Medications and Allergies Home Medications ?Medication ?Instructions ?Recorded ?Confirmed ?Type albuterol sulfate 90 mcg/actuation 2 puff inhalation QIDP PRN 02/13/24 02/13/24 History aerosol inhaler Shortness Of Breath New Prescriptions to Start Prescriptions: Allergies Allergy/AdvReac Type Severity Reaction Status Date / Time cauliflower Allergy Verified 02/13/24 05:28 Discharge Plan Disposition Patient Disposition: Xfer Other Condition: Undetermined Discharge Order Discharge Orders: Discharge Order (Routine); Ordered 02/14/24 Ordered By: Gerson Mendoza Follow up Plan Follow up with: Jeffrey Gregorio MD [Staff Physician] - 1 month Prescriptions/Medication Reconciliation: Continued albuterol sulfate 90 mcg/actuation HFA aerosol inhaler 2 puff inhalation QIDP PRN (Reason: Shortness Of Breath) Rx Instructions: INHALE TWO (2) PUFFS FOUR (4) TIMES DAILY NEEDED FOR SHORTNESS OF BREATH OR WHEEZING Problem Reconciliation Problems Reviewed?: Yes Patient Discharge Instructions ACTIVITY: Continue current activity DIET: continue same diet Patient Instructions: DI for Kidney Infection, DI for Sepsis -- Adult Print Language: Bhutanese Providers Primary Care Provider: Alex Casiano Admit Provider: Gerson Mendoza Attending Provider: Gerson Mendoza
--- NOTE | 2024-02-14 17:50 | PC.NURSE ---
Pt informed that she had been accepted at [facility]. Pt asked if she would be able to go by private vehicle due to her not having insurance. MD made aware of pt question. Md talked to pt about the risks of going by personal car due to her illness. pt was also informed about the risks and benefits of leaving [facility] and going to [facility] by ambulance. Pt decided to leave [facility] and go to [facility] ER in personal car.
== END 2024-02-14 17:49 | disposition left against medical advice (07) | DRG 872 ==
LOC: ER 02-13 03:41 → 2ND 02-13 04:59
PROVIDERS: Nurse Practitioner Acute Care; Admitting Provider Internal Medicine; Emergency Provider Emergency Medicine; PCP Family Medicine; Visit Provider Internal Medicine
DX: A41.2 Sepsis due to unspecified staphylococcus (principal); N12 Tubulo-interstitial nephritis, not specified as acute or chronic; N82.3 Fistula of vagina to large intestine; F19.21 Other psychoactive substance dependence, in remission; F17.210 Nicotine dependence, cigarettes, uncomplicated; Z95.2 Presence of prosthetic heart valve; R74.8 Abnormal levels of other serum enzymes
CPT/HCPCS: 36415; 71275; 74177; 80048; 80053; 81001; 81025; 83605; 83735; 84145; 84484; 85007; 85025; 85027; 86140; 87040; 87077; 87086; 87088; 87186; 93005; 93306; 99285; J0696; J1885; J2185; J2270; J7030; Q9967

== ENCOUNTER 2024-05-16 09:23 | Outpatient (CLI) | payer OTHER, SELFPAY ==
[2024-05-16 19:00] LABS: Alanine Aminotransferase 17 U/L (12-78); Albumin Level 4.9 g/dl (3.5-5.0); Albumin/Globulin Ratio 1.8 (1.1-1.8); Alkaline Phosphatase 73 U/L (38-126); Anion Gap 13.5 mEq/L (5-15); Aspartate Amino Transferase 24 U/L (14-36); Bilirubin,Total 0.9 mg/dl (0.2-1.3); Blood Urea Nitrogen 18 mg/dl (7-17); Calcium 9.9 mg/dl (8.4-10.2); Carbon Dioxide 26 mmol/L (22.0-30.0); Chloride 105 mmol/L (98-107); Estimated Glomerular Filt Rate 63 ml/min (>60); GFR (African American) 76 ML/MIN (>60); Globulin 2.8 g/dL (1.3-3.2); Glucose 91 mg/dl (74-100); Potassium 4.5 mmoL/L (3.5-5.1); Sodium 140 mmol/L (136-145); Total Protein,Serum 7.7 g/dl (6.3-8.2)
[2024-05-16 19:10] LABS: C-Reactive Protein 1.1 mg/L (0-4)
[2024-05-16 19:30] LABS: Thyroid Stimulating Hormone 2.05 uIU/mL (0.465-4.68)
[2024-05-16 19:51] LABS: HIV (1&2) Antibody Rapid NONREACTIVE (NONREACTIVE)
[2024-05-20 20:09] LABS: HCV Ab Reactive (Non Reactive)
== END 2024-05-16 23:59 | disposition home or self-care (01) ==
LOC: LAB.DROPOF 05-19 09:23
PROVIDERS: PCP Family Medicine; Visit Provider Family Medicine
DX: N89.8 Other specified noninflammatory disorders of vagina (principal); B19.20 Unspecified viral hepatitis C without hepatic coma
CPT/HCPCS: 80053; 84443; 86140; 86803; 87086; 87088; 87186; 87389

== ENCOUNTER 2024-10-23 16:19 | Outpatient (CLI) | payer OTHER, SELFPAY ==
[2024-10-23 16:57] LABS: Basophils % 0.4 % (0.1-2.0); Eosinophils # 0.4 Kmm3 (0.0-0.4); Eosinophils % 3.2 % (0.1-12.0); Hematocrit 38.9 % (37.0-47.0); Hemoglobin 13.6 g/dL (12.2-16.2); Lymphocytes # 2.2 K/mm3 (0.7-4.5); Lymphocytes % 19.6 % (10-50); Mean Corpuscular Volume 88.6 fl (81-99); Mean Platelet Volume 11.6 fl (7.4-10.4); Monocytes # 0.6 K/mm3 (0.1-1.0); Monocytes % 5.4 % (1.7-9.3); Neutrophils # 8.1 K/mm3 (1.8-7.8); Nucleated Red Blood Cells # 0 10^3/uL; Nucleated Red Blood Cells % 0 %; Platelet Count 128 K/mm3 (142-424); Red Blood Count 4.39 M/mm3 (4.20-5.40); Red Cell Distribution Width 13.7 % (11.5-17.5); Red Cell Distribution Width-SD 44.2 fL; White Blood Count 11.4 K/mm3 (4.8-10.8)
[2024-10-23 17:34] LABS: HCG,Quantitative 13871 mIU/ml (0-5.42)
[2024-10-24 06:51] LABS: RPR W/RFX Titers Nonreactive (Nonreactive)
[2024-10-25 05:11] LABS: Hepatitis B Surface Antigen Negative (Negative)
[2024-10-25 06:10] LABS: Rubella Antibodies, IgG 5.75 index (Immune >0.99)
[2024-10-25 08:24] LABS: Progesterone 30.1 ng/mL (.)
== END 2024-10-23 23:59 | disposition home or self-care (01) ==
LOC: LAB 16:20
PROVIDERS: PCP Family Medicine; Visit Provider Obstetrics & Gynecology
DX: Z32.01 Encounter for pregnancy test, result positive (principal)
CPT/HCPCS: 36415; 84144; 84702; 85025; 86592; 86762; 86850; 87340

== ENCOUNTER 2024-10-25 11:25 | Emergency (ER) | payer OTHER, SELFPAY ==
[2024-10-25] VITALS (14 sets, daily range): BP systolic 105–131; BP diastolic 69–84; PULSE 79–89; RESP 18–20; TEMP 36.7–36.8; O2SAT 96–98; BMI 25.5
--- NOTE | 2024-10-25 11:56 | ECG_ITS ---
APPROVED REPORT Exam: Resting ECG HR:83 bpm ECG Measurements Heart Rate 83 AXES MN 239 P 67 QRSd 86 QRS 82 QT 383 T 54 QTc 423 Conclusion SINUS RHYTHM WITH FIRST DEGREE AV BLOCK Normal axis, Normal intervals No noted ST elevation Electronically signed by : Alex Aponte, 10/26/2024 07:02:51
[2024-10-25 12:28] LABS: Microscopic, Urine URINE MICROSCOPIC (MICROSCOPIC)
[2024-10-25 12:29] LABS: Appearance,Urine CLEAR (Clear); Bilirubin,Urine Negative (Negative); Blood, Urine Negative (Negative); Color,Urine YELLOW (Yellow); Glucose,Urine (UA) Negative (Negative); Ketones,Urine Negative (Negative); Leukocyte Esterase,Urine 3+ (Negative); Nitrate,Urine Negative (Negative); Protein,Urine Negative (Negative); Urobilinogen,Urine 0.2 EU/dl (0.2)
[2024-10-25 12:38] LABS: Bacteria,Urine 2+ /lpf
[2024-10-25] MEDS: ONDANSETRON 4MG/2ML VIAL 4 MG IV (12:40)
[2024-10-25 12:47] LABS: Basophils % 0.3 % (0.1-2.0); Chloride 109 mmol/L (98-107); Eosinophils # 0.3 Kmm3 (0.0-0.4); Hematocrit 41.7 % (37.0-47.0); Hemoglobin 14.4 g/dL (12.2-16.2); Lymphocytes % 7.6 % (10-50); Mean Corpuscular HGB Conc 34.5 g/dL (31.8-35.4); Mean Corpuscular Volume 89.7 fl (81-99); Mean Platelet Volume 11.6 fl (7.4-10.4); Monocytes # 0.5 K/mm3 (0.1-1.0); Neutrophils # 11.7 K/mm3 (1.8-7.8); Neutrophils % 85.7 % (37.0-80.0); Nucleated Red Blood Cells # 0 10^3/uL; Nucleated Red Blood Cells % 0 %; Platelet Count 136 K/mm3 (142-424); Red Blood Count 4.65 M/mm3 (4.20-5.40); Red Cell Distribution Width 14.1 % (11.5-17.5); Red Cell Distribution Width-SD 46.2 fL; White Blood Count 13.6 K/mm3 (4.8-10.8)
[2024-10-25 12:48] LABS: Albumin Level 4.1 g/dl (3.5-5.0); Potassium 3.9 mmoL/L (3.5-5.1); Sodium 136 mmol/L (136-145)
[2024-10-25 12:50] LABS: Alanine Aminotransferase 80 U/L (12-78); Blood Urea Nitrogen 13 mg/dl (7-17); Creatinine Clearance Estimated 189 mL/min (50-200); Estimated Glomerular Filt Rate 140 ml/min (>60); GFR (African American) 170 ML/MIN (>60); Lipase 152 U/L (23-300)
[2024-10-25 12:51] LABS: Albumin/Globulin Ratio 1.4 (1.1-1.8); Alkaline Phosphatase 79 U/L (38-126); Anion Gap 9.9 mEq/L (5-15); Aspartate Amino Transferase 54 U/L (14-36); Bilirubin,Total 0.6 mg/dl (0.2-1.3); Calcium 8.7 mg/dl (8.4-10.2); Carbon Dioxide 21 mmol/L (22.0-30.0); Globulin 2.9 g/dL (1.3-3.2); Glucose 98 mg/dl (74-100)
[2024-10-25 12:52] LABS: Lactic Acid 1.2 mmol/L (0.7-2.1)
[2024-10-25 13:08] LABS: HCG,Quantitative 13372 mIU/ml (0-5.42)
--- NOTE | 2024-10-25 13:16 | ED_ITS ---
<Statement entered by Misty De La Rosa MD - 10/25/24 23:27> I was consulted by the VIVIANA, and we discussed the complexity of the problems being addressed. I approved the treatment and management plan for this patient's care in the emergency department, thus performing a substantive portion of the medical decision making. Misty De La Rosa MD, SIOMARA, FACEP Discharge Plan Disposition Chief Complaint: Nausea/Vomiting/Diarrhea Prescriptions Prescriptions: No Action trazodone 150 mg tablet 150 mg PO DAILY Qty: 90 3RF PNV cmb#95-ferrous fumarate-FA [] 28 mg iron- 800 mcg tablet PO Patient Comments: TAKE ONE (1) TABLET BY MOUTH ONCE DAILY albuterol sulfate 90 mcg/actuation HFA aerosol inhaler 2 puff inhalation QIDP PRN (Reason: Shortness Of Breath) Rx Instructions: INHALE TWO (2) PUFFS FOUR (4) TIMES DAILY NEEDED FOR SHORTNESS OF BREATH OR WHEEZING Referrals Follow up/Referrals: Alex Casiano MD [Primary Care Provider] - See instructions Instructions Patient Instructions: DI for Diarrhea and Traveler's Diarrhea -- Adult, DI for Diarrhea and Traveler's Diarrhea -- Child, DI for Nausea -- Adult, DI for Nausea -- Child Print Language Print Language: Congolese Discharge ED Provider: Alex Aponte General Adult HPI General Chief complaint: Nausea/Vomiting/Diarrhea Stated complaint: vomiting brown infec. stomach lining Time Seen by Provider: 10/25/24 11:38 Mode of Arrival: Ambulatory Source of Information: Patient Description of Symptoms (Recalled from ER Triage Doc. by RN): Patient reports waking up this morning vomiting brown stuff. States that she hasn't been feeling good for the past week and actually was seen at [facility] on . States they didn't find anything wrong and send her home. States she followed up with Dr. Brown and had blood work done and was told that she had an infection of the lining in her stomach. States that she was prescribed an antibiotic but the pharmacy was closed by the time she went to pick it up, so she has not started her medication. History of Present Illness HPI narrative: 34-year-old female presents to ED with complaint of nausea, vomiting, diarrhea. Past medical history significant for IV drug use, endocarditis, mitral valve replacement, pacemaker. Patient estimates she is 18 weeks . . Patient was seen approximately 1 week ago for similar symptoms lab work was performed and patient being told that she had a intestinal infection and was sent antibiotics but did not pick them up from pharmacy. Has not started taking them yet. Further history of rectovaginal fistula, recurrent UTIs. Was referred scheduled for fistula repair but found out she was surgery was canceled. States she has had vaginal bleeding previously once a month like it. States this has been in her prior pregnancies as well. Denies vaginal bleeding today. Denies chest or abdominal pain at this time. States she does feel some pain whenever she throws up but is not currently having it now. Denies fevers, other concerns at this time. Was seen by OB 2 days ago with clear ultrasound and workup. Related Data Home Medications ?Medication ?Instructions ?Recorded ?Confirmed albuterol sulfate 90 mcg/actuation 2 puff inhalation QIDP PRN 02/13/24 10/23/24 aerosol inhaler Shortness Of Breath vit no.95-ferrous tab PO 10/23/24 10/23/24 fumarate 28 mg-folic acid 800 mcg tablet () Previous Rx's ?Medication ?Instructions ?Recorded trazodone 150 mg tablet 150 mg PO DAILY #90 tabs 05/16/24 Allergies Allergy/AdvReac Type Severity Reaction Status Date / Time cauliflower Allergy Verified 10/23/24 15:29 adhesion tape Allergy Mild itching Uncoded 10/23/24 15:36 [facility] Disclaimer: The information contained in this section may have been updated after the patient was seen, as this information can be updated by other users. Medical History (Updated 10/23/24 @ 16:42 by Heidi Perdomo DO) Drug use affecting Tobacco use affecting , antepartum Advanced maternal age affecting , antepartum Hx of cardiac pacemaker Infective endocarditis History of endocarditis IUD migration Urinary tract infection Pneumonia History of COVID-19 Bronchitis Asthma Anxiety and depression Scoliosis Osteoporosis Allergies History of anemia Pacemaker IUD (intrauterine device) in place Vaginal Discharge Sterilization consult Rectovaginal fistula Dyspnea Chest pain Hx of intravenous drug use in remission Tachycardia Surgical History Heart valve replaced H/O tricuspid valve replacement History of tonsillectomy and adenoidectomy Hx of appendectomy Hx of cholecystectomy History of tonsillectomy and adenoidectomy History of open heart surgery H/O mitral valve replacement Family History Other Asthma Cancer Diabetes FHx: mental illness Heart attack Hypertension Stroke Substance abuse Social History Smoking Status: Current every day smoker tobacco type: cigarettes packs per day: 1 alcohol intake: never substance use type: former substance user, marijuana, heroin and methamphetamine current occupational status: unemployed Travel in the last 8 weeks?: None caffeine: Yes Have you lived/traveled outside [place] in past 30 days?: No Contact w/someone who lives/traveled outside US past 30 days?: No Exposure to someone with infectious disease in past 14 days?: No Do you have a fever (greater than 100.4 F or 38 C)?: No Have you tested positive for COVID-19?: No Exposed to someone with COVID-19 in past 14 days?: No Do you have a sore throat?: No Do you have a cough?: No Do you have any weakness?: No Do you have any diarrhea?: No Are you experiencing any unusual bleeding?: No Do you have any muscle aches/pain?: No Do you have any abdominal pain?: No Are you experiencing loss of taste or smell?: No Other Medical History Have you received the Flu Vaccine for this season: No Have you received the Pneumonia Vaccine: No ROS Obtained: Yes Systems reviewed as appropriate & no additional complaints except as documented Physical Exam General General appearance: alert and in no apparent distress Head Head exam: atraumatic, normocephalic and normal inspection Eye Eye exam: Present normal appearance, PERRL and EOMI ENT ENT exam: Present normal exam, normal oropharynx, mucous membranes moist, TM's normal bilaterally and normal external ear exam Neck Neck exam: Present normal inspection, full ROM and trachea midline; Absent meningismus or lymphadenopathy Chest Chest inspection: Present normal inspection and symmetric chest wall rise; Absent tenderness Respiratory Respiratory exam: Present normal lung sounds bilaterally; Absent respiratory distress Cardiovascular Cardiovascular exam: Present regular rate and normal rhythm; Absent JVD Abdominal Exam Abdominal exam: Present soft, tenderness (Left upper quadrant mildly tender to palpation) and normal bowel sounds; Absent distention or guarding Abdominal tenderness: Present LUQ Extremities Exam Extremities exam: Present normal inspection, full ROM and normal capillary refill; Absent calf tenderness Back Exam Back exam: Present normal inspection; Absent tenderness Neurological Exam Neurological exam: Present alert and oriented X3 Psychiatric Psychiatric exam: Present normal affect and normal mood Skin Skin exam: Present warm, dry, intact and normal color Lymphatic Lymphatic Findings: no adenopathy Medical Decision Making Medical Records Medical records reviewed: Yes I reviewed the patient's medical records. Screening: Per USPSTF and CDC recommendations, given the prevalence of disease in our region, it is our hospital?s policy to screen for HIV and viral Hepatitis for all patients aged 18 and over and those with ongoing risk factors. Justin Inquiry Pt receiving controlled substance: No Justin was queried for this patient: No Vital Signs: 10/25/24 11:35 10/25/24 11:37 10/25/24 11:40 Temperature 98.0 F Temperature Source Oral Pulse Rate 89 89 Pulse Rate [Radial] 89 Respiratory Rate 18 Blood Pressure 127/84 110/71 Blood Pressure [Right Arm] 127/84 Blood Pressure Mean [Right Arm] 98 Blood Pressure Source [Right Arm] Automatic Cuff Blood Pressure Position [Right Arm] Sitting 02 Sat by Pulse Oximetry 98 98 97 Oxygen Delivery Method Room Air Room Air 10/25/24 11:50 10/25/24 12:00 10/25/24 12:10 Temperature Temperature Source Pulse Rate 87 86 85 Pulse Rate [Radial] Respiratory Rate Blood Pressure 131/80 105/79 L 111/74 Blood Pressure [Right Arm] Blood Pressure Mean [Right Arm] Blood Pressure Source [Right Arm] Blood Pressure Position [Right Arm] 02 Sat by Pulse Oximetry 97 96 98 Oxygen Delivery Method Room Air Room Air Room Air 10/25/24 12:40 10/25/24 12:50 10/25/24 13:00 Temperature Temperature Source Pulse Rate 84 79 81 Pulse Rate [Radial] Respiratory Rate Blood Pressure 124/70 109/70 L 115/69 Blood Pressure [Right Arm] Blood Pressure Mean [Right Arm] Blood Pressure Source [Right Arm] Blood Pressure Position [Right Arm] 02 Sat by Pulse Oximetry 98 98 98 Oxygen Delivery Method Room Air Room Air Room Air 10/25/24 13:10 10/25/24 13:20 10/25/24 13:30 Temperature Temperature Source Pulse Rate 85 86 88 Pulse Rate [Radial] Respiratory Rate Blood Pressure 108/76 L 126/83 117/73 Blood Pressure [Right Arm] Blood Pressure Mean [Right Arm] Blood Pressure Source [Right Arm] Blood Pressure Position [Right Arm] 02 Sat by Pulse Oximetry 98 98 98 Oxygen Delivery Method Room Air Room Air Room Air 10/25/24 13:56 Temperature Temperature Source Pulse Rate 82 Pulse Rate [Radial] Respiratory Rate Blood Pressure 106/70 L Blood Pressure [Right Arm] Blood Pressure Mean [Right Arm] Blood Pressure Source [Right Arm] Blood Pressure Position [Right Arm] 02 Sat by Pulse Oximetry 97 Oxygen Delivery Method Room Air Lab Data Lab Results 10/25/24 11:30: Urine Color Yellow, Urine Appearance Clear, Urine pH 8.0, Ur Specific Grahn 1.020, Urine Protein Negative, Urine Glucose (UA) Negative, Urine Ketones Negative, Urine Blood Negative, Urine Nitrate Negative, Urine Bilirubin Negative, Urine Urobilinogen 0.2, Ur Leukocyte Esterase 3+ A, Urine RBC None, Urine WBC 5-10, Ur Squamous Epith Cells 5-10, Urine Bacteria 2+ 10/25/24 12:26: WBC 13.6 H, RBC 4.65, Hgb 14.4, Hct 41.7, MCV 89.7, MCH 31.0, MCHC 34.5, RDW 14.1, Plt Count 136 L, MPV 11.6 H, Neut % (Auto) 85.7 H, Lymph % (Auto) 7.6 L, [place] % (Auto) 4.0, Eos % (Auto) 2.0, Baso % (Auto) 0.3, Neut # (Auto) 11.7 H, Lymph # (Auto) 1.0, [place] # (Auto) 0.5, Eos # (Auto) 0.3, Baso # (Auto) 0.0, Sodium 136, Potassium 3.9, Chloride 109 H, Carbon Dioxide 21 L, Anion Gap 9.9, BUN 13, Creatinine 0.50 L, Estimated Creat Clear 189, Estimated GFR 140, Est GFR ( Amer) 170, Glucose 98, Lactate 1.2, Calcium 8.7, Total Bilirubin 0.6, AST 54 H, ALT 80 H, Alkaline Phosphatase 79, Troponin I < 0.01, Total Protein 7.0, Albumin 4.1, Globulin 2.9, Albumin/Globulin Ratio 1.4, Lipase 152, HCG, Quant [id number] H 10/25/24 12:26 10/25/24 12:26 Orders (Tests/Meds): ED MEDICATIONS Discontinued Medications Generic Name Dose Route Start Last Admin Trade Name Freq PRN Reason Stop Dose Admin Ondansetron HCl 4 mg 10/25/24 11:52 10/25/24 12:40 Ondansetron 4mg/2ml Vial IV 10/25/24 11:53 4 mg ONCE ONE Administration ORDERS Category Date Time Status Consult Polymer Scientist [CONS] Routine Cons 10/25/24 12:38 Active CBC w/Auto Diff [Complete Blood Count Auto Diff] Stat Lab 10/25/24 12:26 Completed CMP [Comprehensive Metabolic Panel] Stat Lab 10/25/24 12:26 Completed HCG,Quantitative Stat Lab 10/25/24 12:26 Completed Lactic Acid Stat Lab 10/25/24 12:26 Completed Lipase Stat Lab 10/25/24 12:26 Completed Troponin I Q3H Lab 10/25/24 12:26 Completed Urinalysis and Microscopic Stat Lab 10/25/24 11:30 Completed Blood Culture Stat Micro 10/25/24 14:04 Received Urine Culture Stat Micro 10/25/24 11:30 Received US OB >= 14 weeks Fetus Stat Ultrasound 10/25/24 14:41 Ordered ECG Data Tracing #1: I reviewed this ECG and interpreted as documented below: Sinus rhythm with first-degree AV block, normal axis, remainder of intervals within normal limits beyond DC interval, no noted ST elevation or otherwise noted ischemic changes or ectopy Medical Decision Narrative: Patient with history and exam per above presenting for evaluation of nausea, vomiting, diarrhea Diagnoses considered include viral gastroenteritis, colitis, electrolyte abnormality, complication, ACS, viral syndrome ED workup and treatment included: As above Labs were independently interpreted by me, significant for Laboratory workup with no noted acute actionable electrolyte abnormalities. Mild hyperchloremia. AST and ALT mild elevation, has been elevated in the past, today's presentation likely secondary to viral process. Lipase within normal limits. Mild leukocytosis, no noted anemia, mild thrombocytopenia. Troponin negative. Beta quant 13,372 two days ago beta quant 13,871. Given patient being approximately 18 weeks it is expected that her beta quant would be stabilizing and not doubling at this time however patient states that she has not been feeling the baby move. heart tone with 153 bpm. Further discussion with patient and chart review shows patient had greenish vaginal discharge 2 days ago. Full panel was sent off for STI testing, RPR negative on review. Remainder of testing pending at this time. Patient was prescribed Macrobid however has been unable to pick this up. Given greenish discharge, patient stating that she has had intermittent bleeding throughout this , not feeling the baby move ultrasound ordered to evaluate . Imaging was pending at time of signout. Patient care signed over to oncoming physician in hemodynamically stable condition. Please see their documentation for further details and final disposition. Critical Care Critical Care Time Critical Care Time: No
[2024-10-25 13:36] LABS: Troponin I < 0.01 ng/ml (0.00-0.034)
--- NOTE | 2024-10-25 14:00 | PC.NURSE ---
T 153
--- NOTE | 2024-10-25 14:41 | US_ITS ---
PROCEDURE INFORMATION: Exam: US After First Trimester, Transabdominal Exam date and time: 10/25/2024 3:40 PM Age: 34 years old Clinical indication: Lmp or gestational age (in weeks): 17 w; Antepartum complications; Decreased movements; Fetus 1; ; Additional info: Decreased hcg lowered movement TECHNIQUE: Imaging protocol: Real-time transabdominal obstetrical ultrasound of the maternal pelvis and a second or third trimester with image documentation. COMPARISON: CT ABDOMEN PELVIS W CON 02/13/2024 1:36 AM FINDINGS: Gestation: Jones living intrauterine gestation. heart rate: 147 bpm. presentation and position: Variable. Amniotic fluid (Qualitative): Subjectively normal. BIOMETRY: Gestational age (AUA): 17 weeks 0 day. Estimated due date (AUA): April 04, 2025. Estimated weight: 166 g (25%). Biparietal diameter (BPD): 3.76 cm 8%. Head circumference (HC): 13.28 cm < 2%. Abdominal circumference (AC): 11.29 cm 6%. Femur length (FL): 2.07 cm <2%. MATERNAL: Uterus: Unremarkable. Cervix: Unremarkable. Cervix is closed. Right ovary/adnexa: Obscured by lack of adequate acoustic window. Left ovary/adnexa: Obscured by lack of adequate acoustic window. Intraperitoneal space: No intraperitoneal free fluid. IMPRESSION: 1. Jones living intrauterine gestation with estimated gestational age 17 weeks 0 day. 2. Estimated weight, head circumference, femur length < 2% (< 2 SD).
--- NOTE | 2024-10-25 16:34 | PC.NURSE ---
pt asking how much longer? I have other kids I have to get home to . Dr De La Rosa notified of this and states he will be rounding on her as soon as possible. Pt updated with this and stated I will wait 15 more minutes .
--- NOTE | 2024-10-25 17:52 | PEERSUPPORT ---
Peer Support Note Patient Information Patient Information: DOS: 10/25/2024 ? Reason: Hx of JAMEY ? ED Ps consult ? Drug(s) of Choice: heroin IV, meth IV, THC ? Last Use: THC on 10/25/2024 ? Previous MAT/MOUD: None ? Current MAT/MOUD: None ? Desire for MAT/MOUD: None; Pt is not interested in any medication for assisted treatment. ? Previous Treatment: [facility]; left without completing, following 6 weeks and counselor wanted her to restart the program. ? Support System: Mother in law, daughter Male/Friend who is in recovery ? Legal Issues: Child support arrears owed ? Potential Barriers: -Lack of connection to recovery -Tendency to leave AMA ? Harm reduction: -Connection to [facility] -Treatment Resources and referrals -Tips on avoiding relapse -Safe coping skills/Self Awareness Education ? Motivation for Change: Pt shared she wanted to find a program that will support her in her recovery during her . She has had previous children removed from her custody and feels hopeful to keep this one. ? Pt has secure housing at this time, feels this may be limited and wants to become independent having her own place, She has been able to refrain from using any other drug since Jul. and values the relationships she has with her children currently. She is feared when coming to appointments with doctors following negative experience with healthcare providers as well as her past health conditions that required her to be hospitalized and many surgeries in regard to her heart. ? Pt is able to identify mental health issues that can be a barrier to her. ? Pt is receptive and accepting to information provided by ps. ? Ps shared personal experience to encourage hope and strength by connection to recovery community placing priority on sobriety for overall enhanced health and wellbeing.? Pt agreeing to follow up phone calls by [facility], with recovery focused support. ? Plan of Action: -Refrain from use of alcohol and/or drugs. -Take medication as prescribed and directed. -Ps follow up phone call on 10/28/19
== END 2024-10-25 17:11 | disposition left against medical advice (07) ==
LOC: ER 11:48
PROVIDERS: Emergency Provider Student in an Organized Health Care Education/Training Program; PCP Family Medicine
DX: O21.9 Vomiting of pregnancy, unspecified (principal); Z3A.18 18 weeks gestation of pregnancy
CPT/HCPCS: 76805; 80053; 81001; 83605; 83690; 84484; 84702; 85025; 87040; 87086; 93005; 96374; 99284; J2405